=== PATIENT | female | born 1995 | race Caucasian/White ===

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

== ENCOUNTER 2017-04-28 12:29 | Inpatient (IN) | payer OTHER ==
[~2017-04-28] VITALS: Ht 160 cm; Wt 99.4 kg
[~2017-04-28 12:29] MED LIST changes: +INSU1INJ2 SQ; -ONDA4TAB10 SL
[2017-04-28] MEDS ORDERED: SODIUM CHLORIDE 0.9% 1000ML 2,000 ML IV STA (12:50)
[2017-04-28] MEDS ORDERED: ONDANSETRON INJ 2 MG/ML 2 ML VIAL IV STA (12:50)
[2017-04-28 13:32] LABS: BASO % 0.2 %; BASO ABS # 0.05 K/uL (0-0.2); COMPLETE YES; EOS % 0.5 %; HEMATOCRIT 41.3 % (37-47); IG% 0.4 %; LYMPH % 7.7 %; LYMPH ABS # 1.57 K/uL (1.2-3.4); MEAN CELL VOLUME 87.3 fL (80-100); MEAN CORPUSCULAR HEMOGLOBIN 29.4 pg (25-34); MEAN CORPUSCULAR HGB CONC 33.7 g/dl (32-36); NEUT % 87.2 %; PLATELET COUNT 404 K/uL (130-400); RED BLOOD COUNT 4.73 M/uL (4.2-5.4); WHITE BLOOD COUNT 20.41 K/uL (4.8-10.8)
[2017-04-28] MEDS ORDERED: PLMINSR5 INH (13:34)
[2017-04-28] MEDS ORDERED: GLC/500 PO (13:34)
[2017-04-28] MEDS ORDERED: XPNINS INH (13:34)
[2017-04-28] MEDS ORDERED: VNTHFA/IN INH (13:34)
[2017-04-28] MEDS ORDERED: MOME6000 NAE (13:34)
--- NOTE | 2017-04-28 13:40 | DIAGNOSTIC IMAGING REPORT ---
CHEST ONE VIEW PORTABLE CLINICAL HISTORY: cp dyspnea COMPARISON STUDY: 07/05/2014 FINDINGS: Several, exam due to patient body habitus. Prominent pulmonary vasculature to moderate degree. Diaphragms smooth. No focal infiltrative process. IMPRESSION: Prominent pulmonary vasculature. Otherwise negative study. The above report was generated using voice recognition software. It may contain grammatical, syntax or spelling errors. Electronically signed by: Vinicio Cao M.D. 04/28/2017 1:38 PM Dictated Date/Time: 04/28/2017 1:37 PM
[2017-04-28 13:45] LABS: URINE APPEARANCE CLOUDY (CLEAR); URINE BILIRUBIN NEG (NEG); URINE COLOR ORANGE; URINE EPITHELIAL CELL AUTO >30 /lpf (0-5); URINE NITRITE NEG (NEG); URINE SPECIFIC GRAVITY 1.033 (1.000-1.030); UROBILINOGEN NEG (NEG); ZZUR CULT IF INDIC CLEAN CATCH NO
[2017-04-28 13:47] LABS: MANUAL MICROSCOPIC REQUIRED? NO; REVIEW REQ? NO
[2017-04-28 13:51] LABS: ALT/SGPT 16 U/L (12-78); AST/SGOT 21 U/L (15-37); BLOOD UREA NITROGEN 13 mg/dl (7-18); BUN/CREATININE RATIO 15.8 (10-20); CALCIUM 9.4 mg/dl (8.5-10.1); CARBON DIOXIDE 19 mmol/L (21-32); CHLORIDE 100 mmol/L (98-107); CREATININE 0.82 mg/dl (0.60-1.20); GLUCOSE 317 mg/dl (70-99); SODIUM 135 mmol/L (136-145)
[2017-04-28 13:55] LABS: ALKALINE PHOSPHATASE 88 U/L (45-117)
[2017-04-28 14:02] LABS: BETA-HYDROXYBUTYRATE 30.31 mg/dL (0.2-2.81)
[2017-04-28] MEDS ORDERED: INSULIN IV INFUSION PROTOCOL STA ×2 (14:07→15:13)
[2017-04-28] MEDS ORDERED: SERT50TA PO (14:09)
[2017-04-28] MEDS ORDERED: MODERATE STRESS LEVEL ONE ×2 (14:15→15:15)
[2017-04-28] MEDS ORDERED: INSULIN REGULAR 250 UNITS in SODIUM CHLORIDE 0.9% 250ML 250 ML IV SCH (14:51)
[2017-04-28] MEDS ORDERED: INSULIN HUMAN REGULAR IV BOLUS 3 UNIT in SYRINGE 0 ML IV SCH (15:00)
[2017-04-28] MEDS ORDERED: GLUCOSE 10 TABS/TUBE PO PRN ×2 (15:00→16:45)
[2017-04-28] MEDS ORDERED: DEXTROSE 50% 50 ML SYR IV PRN ×2 (15:00→16:45)
[2017-04-28] MEDS ORDERED: GLUCOSE 40% GEL 15 GM TUBE PO PRN ×2 (15:00→16:45)
[2017-04-28] MEDS ORDERED: GLUCAGON FOR INJ 1 MG VIAL SQ PRN ×2 (15:00→16:45)
[2017-04-28] MEDS ORDERED: PHARMACY GLYCEMIC MGMT CONSULT PRN (15:15)
[2017-04-28] MEDS ORDERED: ONDANSETRON INJ 2 MG/ML 2 ML VIAL IV PRN (15:15)
[2017-04-28] MEDS ORDERED: PENDING D5 1/2NS+20mEq KCL IVF SCH (15:15)
[2017-04-28] MEDS ORDERED: PENDING NSS+20mEq KCL IVF SCH (15:15)
[2017-04-28] MEDS ORDERED: DKA GOAL RANGE 150-250 mg/dl 1 EA ONE (15:15)
[2017-04-28] MEDS ORDERED: ONDA4TAB46 PO (15:29)
[2017-04-28] MEDS ORDERED: SERT-234 PO (15:29)
[2017-04-28] MEDS ORDERED: INSULIN HUMAN REGULAR IV BOLUS 2.5 UNIT in SYRINGE 0 ML IV SCH (15:30)
[2017-04-28 15:53] LABS: PREG INTERNAL NEGATIVE QC NEG CLEAR BACKGROUND; PREG INTERNAL POSITIVE QC POS CONTROL LINE
[2017-04-28] MEDS ORDERED: RANITIDINE IV 50 MG in DEXTROSE 5% 100ML 100 ML IV SCH (16:00)
--- NOTE | 2017-04-28 16:12 | History and Physical ---
History & Physical Date & Time of Service: Apr 28, 2017 at 15:38 Chief Complaint: Diarreha, Nausea,Shortness Of Breath,Chest Pain Primary Care Physician: Carol Mckenzie D.O. History of Present Illness Source: patient, clinic records This is a 21yo F with a PMH of DM Type 1 (on insulin pump), asthma, anxiety, depression and GERD who presents with nausea, vomiting and chest pain that started this morning. Patient has had a decreased appetite for the past two days but otherwise has been in a normal state of health. This morning, she woke up this morning feeling lightheaded, thirsty and nauseous. Endorses 4 episodes of bilious vomit as well as 2 episodes of diarrhea. States that these are all signs of elevated blood sugar for her. Did not think her pump was working and was later told by her roommate that the pump was beeping during the night. Went to take her back-up insulin but realized she was out of her Novolog flex pen as well. Took "around 100 units" of her grandmother's Novolin, which she knows is not her normal type of insulin. States that she went into DKA numerous times as a kid but has been managing her pump better over the past few years. After taking her grandmother's insulin, patient felt well enough to go to work. Once moving around at work, started to develop a sharp, 9/10 pressure on her central chest with radiation to both arms. States that it was exacerbated with movement and better with rest. Is tender to the touch. Endorses dizziness,polydipsia, decreased appetite, nausea, and 5/10 chest tenderness. Denies any headache, visual changes, palpitations, SOB, abdominal pain, diarrhea/constipation or LE swelling. Patient was treated with antibiotics 2 weeks ago for laryngitis. Past Medical/Surgical History Medical Problems: (1) Anxiety Status: Chronic (2) Asthma, Unspecified Status: Chronic (3) Depression Status: Chronic (4) Diabetes mellitus type 1 Status: Chronic (5) GERD (gastroesophageal reflux disease) Status: Chronic Family History Diabetes mellitus FH: cancer FH: gallbladder disease Kidney disease Kidney stones Social History Smoking Status: Current Some Day Smoker (Smokes 2-5 cigarrettes every other day ) Alcohol Use: none Marital Status: single Housing status: lives with friends Occupational Status: employed Multi-Drug Resistant Organisms History of MDRO: No Allergies Coded Allergies: Amoxicillin (Verified Allergy, Intermediate, rash, 04/28/17) Clavulanic Acid (Verified Allergy, Intermediate, rash, 04/28/17) Loratadine (Unverified Allergy, Mild, 04/28/17) Red Dye (Verified Allergy, Unknown, `, 04/28/17) Penicillins (Unverified Adverse Reaction, Intermediate, RASH, 04/28/17) Home Medications Scheduled Albuterol Hfa (Ventolin Hfa), 2 PUFFS INH Q4H Insulin Aspart (novoLOG INSULIN PUMP ), 1 EA N/A UD Insulin Aspart (Novolog Penfill), 0 SQ UD Metformin Hcl (Glucophage), 500 MG PO BID Sertraline (Zoloft), 100 MG PO DAILY Scheduled PRN Ondansetron Hcl (Zofran), 4 MG PO Q8 PRN for Nausea Review of Systems Ten systems reviewed and negative except as noted in the HPI. Physical Exam Vital Signs Date Time Temp Pulse Resp B/P (MAP) Pulse Ox O2 Delivery O2 Flow Rate FiO2 04/28/17 14:09 98 18 103/58 99 04/28/17 12:35 36.8 96 20 141/86 97 Room Air General Appearance: no apparent distress, + obese Head: normocephalic, atraumatic Eyes: normal inspection, PERRL, EOMI, sclerae normal (conjunctiva normal ) ENT: normal ENT inspection, hearing grossly normal, pharynx normal (Dry mucous membranes ) Neck: supple, thyroid normal, trachea midline Respiratory/Chest: lungs clear, normal breath sounds, no respiratory distress, no accessory muscle use, + pertinent finding (TTP of chest wall ) Cardiovascular: regular rate, rhythm, no murmur, normal peripheral pulses Abdomen/GI: normal bowel sounds, non tender, soft, no organomegaly Extremities/Musculoskelatal: normal inspection, no calf tenderness, no pedal edema, non-tender Neurologic/Psych: no motor/sensory deficits, alert, normal mood/affect, oriented x 3 Skin: normal color, warm/dry, no rash Diagnostics Laboratory Results Results Past 24 Hours Test 04/28/17 12:44 04/28/17 12:50 04/28/17 13:14 04/28/17 15:03 Range/Units Bedside Glucose 267 70-90 mg/dl Urine Test NEG NEG White Blood Count 20.41 4.8-10.8 K/uL Red Blood Count 4.73 4.2-5.4 M/uL Hemoglobin 13.9 12.0-16.0 g/dL Hematocrit 41.3 37-47 % Mean Corpuscular Volume 87.3 80-100 fL Mean Corpuscular Hemoglobin 29.4 25-34 pg Mean Corpuscular Hemoglobin Concent 33.7 32-36 g/dl Platelet Count 404 130-400 K/uL Mean Platelet Volume 10.0 7.4-10.4 fL Neutrophils (%) (Auto) 87.2 % Lymphocytes (%) (Auto) 7.7 % Monocytes (%) (Auto) 4.0 % Eosinophils (%) (Auto) 0.5 % Basophils (%) (Auto) 0.2 % Neutrophils # (Auto) 17.80 1.4-6.5 K/uL Lymphocytes # (Auto) 1.57 1.2-3.4 K/uL Monocytes # (Auto) 0.81 0.11-0.59 K/uL Eosinophils # (Auto) 0.10 0-0.5 K/uL Basophils # (Auto) 0.05 0-0.2 K/uL RDW Standard Deviation 44.3 36.4-46.3 fL RDW Coefficient of Variation 13.8 11.5-14.5 % Immature Granulocyte % (Auto) 0.4 % Immature Granulocyte # (Auto) 0.08 0.00-0.02 K/uL Urine Color ORANGE Urine Appearance CLOUDY CLEAR Urine pH 5.0 4.5-7.5 Urine Specific [place] 1.033 1.000-1.030 Urine Protein TRACE NEG Urine Glucose (UA) 3+ NEG Urine Ketones 4+ NEG Urine Occult Blood 3+ NEG Urine Nitrite NEG NEG Urine Bilirubin NEG NEG Urine Urobilinogen NEG NEG Urine Leukocyte Esterase NEG NEG Urine WBC (Auto) 1-5 0-5 /hpf Urine RBC (Auto) >30 0-4 /hpf Urine Hyaline Casts (Auto) 1-5 0-5 /lpf Urine Epithelial Cells (Auto) >30 0-5 /lpf Urine Bacteria (Auto) NEG NEG Sodium Level 135 136-145 mmol/L Potassium Level 4.0 3.5-5.1 mmol/L Chloride Level 100 98-107 mmol/L Carbon Dioxide Level 19 21-32 mmol/L Anion Gap 15.0 3-11 mmol/L Blood Urea Nitrogen 13 7-18 mg/dl Creatinine 0.82 0.60-1.20 mg/dl Est Creatinine Clear Calc Drug Dose 125.1 ml/min Estimated GFR () 120.2 Estimated GFR (Non- 103.7 BUN/Creatinine Ratio 15.8 10-20 Random Glucose 317 70-99 mg/dl Calcium Level 9.4 8.5-10.1 mg/dl Total Bilirubin 0.8 0.2-1 mg/dl Direct Bilirubin 0.2 0-0.2 mg/dl Aspartate Amino Transf (AST/SGOT) 21 15-37 U/L Alanine Aminotransferase (ALT/SGPT) 16 12-78 U/L Alkaline Phosphatase 88 45-117 U/L Troponin I < 0.015 0-0.045 ng/ml Total Protein 7.7 6.4-8.2 gm/dl Albumin 3.8 3.4-5.0 gm/dl Lipase 39 73-393 U/L Beta-Hydroxybutyric Acid 30.31 0.2-2.81 mg/dL Test 04/28/17 15:13 Range/Units Diagnostic Radiology CXR: IMPRESSION: Prominent pulmonary vasculature. Otherwise negative study. EKG Sinus tachycardia Rightward axis Borderline ECG When compared with ECG of 05-JUL-2014 18:38, No significant change was found Confirmed by ROSEMARIE PAZ Also reviewed by me No change from prior EKG Impression Assessment and Plan This is a 21yo F with a PMH of DM Type 1 (on insulin pump), asthma, anxiety, depression and GERD who presents with nausea, vomiting and chest pain that started this morning. Mild DKA: -2/2 malfunctioning pump in an uncontrolled Type 1 diabetic -Could also be an infectious etiology with a leukocytosis of 20 -Resolving viral URI infection from 2 weeks ago -UA is clean, CXR without evidence of PNA, no current URI symptoms -BSG of 317 on arrival -Anion gap of 15, bicarb of 19 -Elevated B hydroxybutyric acid of 30.31, 4+ ketones in urine -Initiated insulin infusion per DKA protocol -ABG pending -Continue IVF -Monitor BMP Q4H, VBG Q4H -Keep NPO until anion gap closes -Diabetic education consult Chest pain: -VS stable -Likely musculoskeletal etiology, chest wall tender to palpation on exam -Initial troponin negative, CXR without acute abnormality -EKG-with sinus tachycardia; no change from previous -Trend serial cardiac enzymes for completeness -Check echo Diarrhea: -Endorses a few episodes today -Likely 2/2 DKA, but did complete abx 2 weeks ago -Stool studies, c diff pending Asthma: -Remote history of asthma -Previously triggered by URI -Denies any wheezing/SOB -Lung exam is clear -Continue home inhaler Anxiety/depression: -H/o admission to the [facility] in November for suicidal ideation -Currently stable, no SI/HI -Continue sertraline 100mg daily GERD: -Not on any home meds -Initiated IV Zantac Q8H DVT Ppx: Jason stokeslibby Code status: FULL PCP: Abbe Mckenzie Dispo: Plan to return home once medically stable Patient seen in collaboration with Dr. Butler. Please see addendum. Attending Note: Patient is a 21 Yr old Female with PMH of Type I DM presents with history of poor appetite, nausea, dizziness, vomiting, diarrhea, chest and epigastric pain. Patient noticed that Insulin pump was not working this morning. Also admits to not eating well since last 2 days. Her labs are consistent with DKA. Reports being just recovered from laryngitis 2 weeks ago. Also reports atypical chest pain which is likely musculoskeletal in origin as it is reproducible. Physical Exam: Vitals signs as noted above General Appearance:Obese, no apparent distress Head: normocephalic, Atraumatic Eyes: normal inspection, EOMI, PERRL Neck: supple, Trachea midline Respiratory/Chest: Normal breath sounds, CTA, No accessory muscle use Cardiovascular: S1, S2, No murmur, chest tender to palpate Abdomen/GI:Soft, epigastric tender, Bowel sounds present Extremities/Musculoskelatal:normal inspection, no edema Neurologic/Psych:AAOX3, grossly no focal neurological deficits Skin:normal color,warm Assessment and Plan: DKA: Likely secondary to pump malfunction Also starvation ketoacidosis could also be contributing Started on DKA protocol: Insulin, IV fluids Monitor electrolytes Chest Pain: Likely musculoskeletal in origin H/O Asthma but no wheezing on exam Abd Pain: Likely secondary to gastritis from DKA Start PPI Leukocytosis: No obvious source of infection Procalcitonin, lactate: normal I personally reviewed the record. Patient is interviewed and examined at bedside. Patient's care is coordinated with Akilah Garcia PA-C. Please refer to the documentation above for details of patient's presentation and for discussion of other issues. Level of Care Telemetry Resuscitation Status FULL RESUSCITATION VTE Prophylaxis VTE Risk Assessment Done? Y/N: Yes Risk Level: Low Given or contraindicated: T.E.D. Stockings
[2017-04-28 16:30] VITALS: BP 118/71; PULSE 94; TEMP 36.8; O2SAT 98
[2017-04-28 16:30] LABS: ARTERIAL BLD GAS O2 SATURATION 97.4 % (90-95); ARTERIAL BLOOD GAS BASE EXCESS -7.1 mEq/L (-9-1.8); ARTERIAL BLOOD GAS HCO3 18 mmol/L (19-24); ARTERIAL BLOOD GAS PO2 99 mm/Hg (80-95); ARTERIAL BLOOD GAS pH 7.34 (7.35-7.45)
[2017-04-28 16:33] LABS: CREATININE 0.73 mg/dl (0.60-1.20)
[2017-04-28 16:34] LABS: BUN/CREATININE RATIO 18.7 (10-20); CALCIUM 8.5 mg/dl (8.5-10.1); MAGNESIUM 1.6 mg/dl (1.8-2.4); PHOSPHORUS 2.7 mg/dl (2.5-4.9)
[2017-04-28 16:36] VITALS: BP 130/59; PULSE 90; TEMP 37.1; O2SAT 98; BMI 39.4
[2017-04-28 16:39] LABS: ALLEN TEST POS (POS); O2 ADMINISTRATION RA
[2017-04-28] MEDS ORDERED: IV FLUIDS COMPLETED PRN (16:45)
[2017-04-28] MEDS ORDERED: SODIUM CHLORIDE 0.9% 1000ML 1,000 ML IV ONE (16:46)
[2017-04-28] MEDS ORDERED: SODIUM CHLORIDE 0.9% 1000ML 1,000 ML IV SCH (16:46)
[2017-04-28 17:08] LABS: ESTIMATED AVERAGE GLUCOSE 203 mg/dl; HA1C FLAG Normal (Normal)
[2017-04-28] MEDS ORDERED: INSULIN ASPART 100 UNITS/ML 3 ML PEN SC SCH ×2 (17:15→19:00)
[2017-04-28] MEDS ORDERED: NURSING VERBAL MED ORDER ONE (17:15)
[2017-04-28] MEDS ORDERED: INSPMPNVLG (17:50)
[2017-04-28] MEDS ORDERED: PROM25TA9 PO (17:50)
--- NOTE | 2017-04-28 18:00 | EMERGENCY ROOM VISIT NOTE ---
History Report prepared by José Miguel: Bob Esposito Under the Supervision of: Dr. Angelo Sarabia D.O. First contact with patient: 12:42 Chief Complaint: CHEST PAIN Stated Complaint: DIARREHA, NAUSEA,SHORTNESS OF BREATH,CHEST PAIN Nursing Triage Summary: "I'm a diabetic, this morning I woke up and heard my insulin pump beeping, I refilled it and left for work, I didn't have time to check my blood sugar. I developed chest pain last night, this morning it is much worse, I feel like someone is holding their hand on my heart and pushing down." Pain 04/08. Pt also verbalizes N/V/D, dizziness, and shortness of breath. History of Present Illness The patient is a 21 year old female who presents to the Emergency Room with complaints of sharp chest pain that began 2 hours ago. She has a history of type 1 diabetes. Her symptoms presented this morning when she woke up. She began having this chest pain with radiation down her bilateral arms. She also became short of breath with her pain. Along with this, she became nauseated and had 4 episodes of vomiting with 2 episodes of diarrhea. This has never happened to her before. She denies any sore throat or abdominal pain. She has been in DKA before, but does not remember what it feels like. She has had her insulin pump in place but has not checked her sugar recently. Source of History: patient Onset: this morning Position: chest Symptom Intensity: moderate Quality: sharp Timing: constant Associated Symptoms: + SOB, + nausea, + vomiting, + diarrhea, No sorethroat , No abdominal pain Review of Systems See HPI for pertinent positives & negatives. A total of 10 systems reviewed and were otherwise negative. Past Medical & Surgical Medical Problems: (1) Anxiety (2) Asthma, Unspecified (3) Depression (4) Diabetes mellitus type 1 (5) GERD (gastroesophageal reflux disease) Family History Diabetes mellitus FH: cancer FH: gallbladder disease Kidney disease Kidney stones Social History Smoking Status: Current Some Day Smoker Marital Status: single Housing Status: lives with family Occupation Status: student Current/Historical Medications Scheduled Albuterol Hfa (Ventolin Hfa), 2 PUFFS INH Q4H Insulin Aspart (novoLOG INSULIN PUMP ), 1 EA N/A UD Insulin Aspart (Novolog Penfill), 0 SQ UD Metformin Hcl (Glucophage), 500 MG PO BID Sertraline (Zoloft), 100 MG PO DAILY Scheduled PRN Ondansetron Hcl (Zofran), 4 MG PO Q8 PRN for Nausea Allergies Coded Allergies: Amoxicillin (Verified Allergy, Intermediate, rash, 04/28/17) Clavulanic Acid (Verified Allergy, Intermediate, rash, 04/28/17) Loratadine (Unverified Allergy, Mild, 04/28/17) Red Dye (Verified Allergy, Unknown, `, 04/28/17) Penicillins (Unverified Adverse Reaction, Intermediate, RASH, 04/28/17) Physical Exam Vital Signs Date Time Temp Pulse Resp B/P (MAP) Pulse Ox O2 Delivery O2 Flow Rate FiO2 04/28/17 14:09 98 18 103/58 99 04/28/17 12:35 36.8 96 20 141/86 97 Room Air Physical Exam GENERAL: Sitting up in bed, alert, ill appearing, well nourished, minimal distress, non-toxic, vomiting EYE EXAM: normal conjunctiva. OROPHARYNX: no exudate, no erythema, lips, buccal mucosa, and tongue normal and mucous membranes are moist NECK: supple, no nuchal rigidity, no adenopathy, non-tender LUNGS: Clear to auscultation. Normal chest wall mechanics HEART: no murmurs, S1 normal and S2 normal ABDOMEN: abdomen soft, non-tender, normo-active bowel sounds, no masses, no rebound or guarding. BACK: Back is symmetrical on inspection and there is no deformity, no midline tenderness, no CVA tenderness. SKIN: no rashes and no bruising UPPER EXTREMITIES: upper extremities are grossly normal. LOWER EXTREMITIES: No pitting edema. NEURO EXAM: Normal sensorium, cranial nerves II-XII grossly intact, normal speech, no gross weakness of arms, no gross weakness of legs. Medical Decision & Procedures ER Provider Diagnostic Interpretation: Radiology results as stated below per my review and the radiologist's interpretation: CHEST ONE VIEW PORTABLE CLINICAL HISTORY: cp dyspnea COMPARISON STUDY: 07/05/2014 FINDINGS: Several, exam due to patient body habitus. Prominent pulmonary vasculature to moderate degree. Diaphragms smooth. No focal infiltrative process. IMPRESSION: Prominent pulmonary vasculature. Otherwise negative study. The above report was generated using voice recognition software. It may contain grammatical, syntax or spelling errors. Electronically signed by: Vinicio Cao M.D. 04/28/2017 1:38 PM Dictated Date/Time: 04/28/2017 1:37 PM Laboratory Results 04/28/17 13:14 Red Blood Count 4.73, Mean Corpuscular Volume 87.3, Mean Corpuscular Hemoglobin 29.4, Mean Corpuscular Hemoglobin Concent 33.7, Mean Platelet Volume 10.0, Neutrophils (%) (Auto) 87.2, Lymphocytes (%) (Auto) 7.7, Monocytes (%) (Auto) 4.0, Eosinophils (%) (Auto) 0.5, Basophils (%) (Auto) 0.2, Neutrophils # (Auto) 17.80, Lymphocytes # (Auto) 1.57, Monocytes # (Auto) 0.81, Eosinophils # (Auto) 0.10, Basophils # (Auto) 0.05 Test 04/28/17 12:50 04/28/17 13:14 Urine Test NEG (NEG) White Blood Count 20.41 K/uL (4.8-10.8) Red Blood Count 4.73 M/uL (4.2-5.4) Hemoglobin 13.9 g/dL (12.0-16.0) Hematocrit 41.3 % (37-47) Mean Corpuscular Volume 87.3 fL (80-100) Mean Corpuscular Hemoglobin 29.4 pg (25-34) Mean Corpuscular Hemoglobin Concent 33.7 g/dl (32-36) Platelet Count 404 K/uL (130-400) Mean Platelet Volume 10.0 fL (7.4-10.4) Neutrophils (%) (Auto) 87.2 % Lymphocytes (%) (Auto) 7.7 % Monocytes (%) (Auto) 4.0 % Eosinophils (%) (Auto) 0.5 % Basophils (%) (Auto) 0.2 % Neutrophils # (Auto) 17.80 K/uL (1.4-6.5) Lymphocytes # (Auto) 1.57 K/uL (1.2-3.4) Monocytes # (Auto) 0.81 K/uL (0.11-0.59) Eosinophils # (Auto) 0.10 K/uL (0-0.5) Basophils # (Auto) 0.05 K/uL (0-0.2) RDW Standard Deviation 44.3 fL (36.4-46.3) RDW Coefficient of Variation 13.8 % (11.5-14.5) Immature Granulocyte % (Auto) 0.4 % Immature Granulocyte # (Auto) 0.08 K/uL (0.00-0.02) Urine Color ORANGE Urine Appearance CLOUDY (CLEAR) Urine pH 5.0 (4.5-7.5) Urine Specific [place] 1.033 (1.000-1.030) Urine Protein TRACE (NEG) Urine Glucose (UA) 3+ (NEG) Urine Ketones 4+ (NEG) Urine Occult Blood 3+ (NEG) Urine Nitrite NEG (NEG) Urine Bilirubin NEG (NEG) Urine Urobilinogen NEG (NEG) Urine Leukocyte Esterase NEG (NEG) Urine WBC (Auto) 1-5 /hpf (0-5) Urine RBC (Auto) >30 /hpf (0-4) Urine Hyaline Casts (Auto) 1-5 /lpf (0-5) Urine Epithelial Cells (Auto) >30 /lpf (0-5) Urine Bacteria (Auto) NEG (NEG) Estimated Average Glucose 203 mg/dl Hemoglobin A1c 8.7 % (4.5-5.6) Total Bilirubin 0.8 mg/dl (0.2-1) Direct Bilirubin 0.2 mg/dl (0-0.2) Aspartate Amino Transf (AST/SGOT) 21 U/L (15-37) Alanine Aminotransferase (ALT/SGPT) 16 U/L (12-78) Alkaline Phosphatase 88 U/L (45-117) Troponin I < 0.015 ng/ml (0-0.045) Total Protein 7.7 gm/dl (6.4-8.2) Albumin 3.8 gm/dl (3.4-5.0) Lipase 39 U/L (73-393) Beta-Hydroxybutyric Acid 30.31 mg/dL (0.2-2.81) Procalcitonin 0.05 ng/ml (0-0.5) Human Chorionic Gonadotropin, Qual NEG (NEG) Laboratory results per my review. Medications Administered Medications (Trade) Dose Ordered Sig/Mary Anne Route Start Time Stop Time Status Last Admin Dose Admin Sodium Chloride 2,000 ml @ 999 mls/hr Q2H1M STAT IV 04/28/17 12:50 04/28/17 14:50 DC 04/28/17 13:14 999 MLS/HR Ondansetron HCl (Zofran Inj) 4 mg NOW STAT IV 04/28/17 12:50 04/28/17 12:51 DC 04/28/17 13:12 4 MG Insulin Human Regular 250 units/ Sodium Chloride 252.5 ml @ 2.5 mls/hr DAILY@1130 IV 04/28/17 14:51 04/29/17 11:29 04/28/17 15:29 2.5 MLS/HR Insulin Human Regular 2.5 unit/ Syringe 2.5 ml @ 1 mls/min 1530 IV 04/28/17 15:30 04/28/17 16:30 DC 04/28/17 15:31 1 MLS/MIN ECG Indication: chest pain Rate (beats per minute): 101 Rhythm: sinus tachycardia Findings: no ectopy, other (Normal axis) ED Course ED COURSE: Vital signs were reviewed and showed normal vitals. The patients medical record was reviewed The above diagnostic studies were performed and reviewed. ED treatments and interventions as stated above. 1242: The patient was evaluated in room B7. A complete history and physical examination was performed. 1250: Ordered Zofran Inj 4 mg IV, Sodium Chloride 2000 ml @ 999 mls/hr IV 1407: Ordered Insulin Human Regular 1 ea 1424: Upon reevaluation, the patient is resting. I discussed my findings with the patient and she understands and agrees with the treatment plan. Based on the patients age, coexisting illnesses, exam and lab findings the decision to treat as an inpatient was made. The patient remained stable while under my care. The patient will be evaluated by Akilah Garcia PA-C - [facility] Hospitalist, for further management. Medical Decision Differential diagnoses includes but is not limited to acute coronary syndrome, myocardial infarction, pericarditis, pulmonary embolus, aortic dissection, pneumonia, pneumothorax, musculoskeletal, shingles, esophageal. Patient is a 21 year old female who presents to ER with nausea vomiting and diarrhea. She is a type I diabetic. She has an insulin pump. She has not checked her glucose recently. She has been unable to keep anything down. Blood sugar upon arrival was 300s. Plus four ketones. CO2 15. CO2 19. Based on this patient was given 2 L normal saline and insulin drip and bolus was ordered. Patient was given Zofran and was feeling slightly better. Blood sugar trend down to 250. Based on her symptoms patient was admitted for DKA as she was unable to tolerate fluids with an anion gap acidosis. Patient was monitored closely with the elevated blood sugars on the insulin drip with her nausea vomiting. Medication Reconcilliation Current Medication List: was personally reviewed by me Blood Pressure Screening Patient's blood pressure: Normal blood pressure Blood pressure disposition: Did not require urgent referral Consults Time Called: 1420 Consulting Physician: Akilah Garcia PA-C [facility] Hospitalist Returned Call: [phone] I reviewed the patient's case with her. She will evaluate the patient for further management. Impression Primary Impression: DKA (diabetic ketoacidoses) Critical Care I have personally spent 35 minutes of critical care time in the direct management of this patient. This includes bedside care, interpretation of diagnostic studies, and testing, discussion with consultants, patient, and family members, and other required patient management activities. This 35 minutes is in excess of all separately billable procedures. Scribe Attestation The scribe's documentation has been prepared under my direction and personally reviewed by me in its entirety. I confirm that the note above accurately reflects all work, treatment, procedures, and medical decision making performed by me. Departure Information Dispostion Being Evaluated By Hospitalist Referrals Carol Mckenzie D.O. (PCP) Patient Instructions My [facility] Problem Qualifiers Primary Impression: DKA (diabetic ketoacidoses) Diabetes mellitus type: type 1 Diabetes mellitus complication detail: without coma Qualified Codes: E10.10 - Type 1 diabetes mellitus with ketoacidosis without coma
[2017-04-28] MEDS: D5W AND 1/2NSS + 20MEQ KCL 1000 ML IV SCH (18:15)
[2017-04-28] MEDS: INSULIN ASPART 100 UNITS/ML 3 ML PEN SC SCH ×2 (18:16→21:00)
[2017-04-28] MEDS ORDERED: MAGNESIUM SULFATE 1GM / D5W 1 GM in PREMIXED IN D5W 100 ML IV SCH (18:30)
[2017-04-28] MEDS: MAGNESIUM SULFATE 1GM / D5W 1 GM in PREMIXED IN D5W 100 ML IV SCH ×2 (18:48→19:48)
[2017-04-28 19:30] VITALS: BP 118/64; PULSE 96; TEMP 37.2; O2SAT 98
[2017-04-28] MEDS: INSULIN REGULAR 250 UNITS in SODIUM CHLORIDE 0.9% 250ML 250 ML IV SCH (19:58)
[2017-04-28 20:14] LABS: BUN/CREATININE RATIO 16.6 (10-20); CALCIUM 8.3 mg/dl (8.5-10.1); CREATININE 0.67 mg/dl (0.60-1.20); PHOSPHORUS 3.2 mg/dl (2.5-4.9); POTASSIUM 3.9 mmol/L (3.5-5.1)
[2017-04-28 20:19] LABS: CKMB/CK RATIO 0.5 (0-3.0)
[2017-04-28] MEDS: ALBUTEROL HFA 8 GM INHALER INH SCH (20:32)
[2017-04-28] MEDS: FAMOTIDINE IV INJ 20 MG in SYRINGE 3 ML IV SCH (21:37)
[2017-04-28 23:46] VITALS: BP 122/60; PULSE 92; TEMP 37; O2SAT 99
[2017-04-29] VITALS (7 sets, daily range): BP systolic 119–164; BP diastolic 55–102; PULSE 83–105; TEMP 36.7–37; O2SAT 95–99; BMI 39.5
[2017-04-29 00:15] LABS: BUN/CREATININE RATIO 14.9 (10-20); CALCIUM 8.3 mg/dl (8.5-10.1); CREATININE 0.69 mg/dl (0.60-1.20); MAGNESIUM 1.9 mg/dl (1.8-2.4); PHOSPHORUS 3.6 mg/dl (2.5-4.9); POTASSIUM 4.5 mmol/L (3.5-5.1)
[2017-04-29 00:33] LABS: BETA-HYDROXYBUTYRATE 32.47 mg/dL (0.2-2.81)
[2017-04-29] MEDS: ALBUTEROL HFA 8 GM INHALER INH SCH ×6 (00:35→20:48)
[2017-04-29 01:37] LABS: CKMB/CK RATIO 0.5 (0-3.0)
[2017-04-29] MEDS: D5W AND 1/2NSS + 20MEQ KCL 1000 ML IV SCH (03:17)
[2017-04-29 04:03] LABS: BASO % 0.2 %; BASO ABS # 0.04 K/uL (0-0.2); COMPLETE YES; EOS % 0.2 %; HEMATOCRIT 37.4 % (37-47); IG% 0.6 %; LYMPH % 10.4 %; LYMPH ABS # 1.83 K/uL (1.2-3.4); MEAN CELL VOLUME 87.4 fL (80-100); MEAN CORPUSCULAR HEMOGLOBIN 28.3 pg (25-34); MEAN CORPUSCULAR HGB CONC 32.4 g/dl (32-36); MEAN PLATELET VOLUME 9.7 fL (7.4-10.4); MONO % 5.3 %; NEUT % 83.3 %; PLATELET COUNT 338 K/uL (130-400); RED BLOOD COUNT 4.28 M/uL (4.2-5.4); WHITE BLOOD COUNT 17.67 K/uL (4.8-10.8)
[2017-04-29 04:29] LABS: BUN/CREATININE RATIO 12.1 (10-20); CALCIUM 8.1 mg/dl (8.5-10.1); CREATININE 0.8 mg/dl (0.60-1.20); MAGNESIUM 1.9 mg/dl (1.8-2.4); PHOSPHORUS 2.8 mg/dl (2.5-4.9); POTASSIUM 4.7 mmol/L (3.5-5.1)
[2017-04-29 05:03] LABS: BETA-HYDROXYBUTYRATE 39.6 mg/dL (0.2-2.81)
[2017-04-29] MEDS ORDERED: D5W AND NSS 1,000 ML IV PRN (05:15)
[2017-04-29] MEDS: SODIUM CHLORIDE 0.9% 1000ML 1,000 ML IV SCH ×2 (05:29→10:44)
[2017-04-29] MEDS ORDERED: PERFLUTREN LIPID MICROSPHERE (DEFINITY) IV ONE (07:08)
[2017-04-29] MEDS: FAMOTIDINE IV INJ 20 MG in SYRINGE 3 ML IV SCH (07:52)
[2017-04-29] MEDS: INSULIN ASPART 100 UNITS/ML 3 ML PEN SC SCH ×2 (07:52→12:22)
[2017-04-29] MEDS: SERTRALINE HCL 100 MG TAB PO SCH (07:54)
[2017-04-29 08:44] LABS: BUN/CREATININE RATIO 12.2 (10-20); CALCIUM 8.3 mg/dl (8.5-10.1); CREATININE 0.69 mg/dl (0.60-1.20); MAGNESIUM 1.9 mg/dl (1.8-2.4); PHOSPHORUS 2.5 mg/dl (2.5-4.9); POTASSIUM 4.2 mmol/L (3.5-5.1)
[2017-04-29] MEDS ORDERED: ALUMINUM/MAGNESIUM SUSP 30 ML UDC ONE (08:52)
[2017-04-29] MEDS ORDERED: ALUMINUM/MAGNESIUM SUSP 30 ML UDC PO PRN (09:00)
[2017-04-29] MEDS: INSULIN REGULAR 250 UNITS in SODIUM CHLORIDE 0.9% 250ML 250 ML IV SCH (09:30)
[2017-04-29] MEDS ORDERED: CALCIUM CARBONATE 500 MG CHEWABLE PO PRN (09:30)
--- NOTE | 2017-04-29 09:48 | Progress Note ---
Medicine Progress Note Date & Time of Visit: Apr 29, 2017 at 09:34. Subjective 21 yo F p/w n/v/d and chest pressure. Chest pressure began yesterday and is described as burning and in the middle of her chest without radiation or associated symptoms of SOB, lightheadedness. CP began after vomiting began. No family h/o CAD. -presenting symptoms have improved. -recently tried Maalox for chest pressure. Encouraged her to sit up. -no SOB but requesting albuterol -gap closed, continues on insulin drip, gluc now <250. Objective Last 8 Hrs Date Time Temp Pulse Resp B/P (MAP) Pulse Ox O2 Delivery O2 Flow Rate FiO2 04/29/17 08:38 91 16 140/94 (109) 95 Room Air 04/29/17 07:56 36.9 85 16 119/55 (76) 99 04/29/17 04:25 37.0 91 22 122/57 (78) 98 Room Air 04/29/17 04:00 Room Air Physical Exam: GEN: Obese, in no acute distress, alert and appropriate HEENT: NC/AT, normal sclerae, MMM CARDIO: reg rate, S1/2 heard without m/g/r LUNGS: CTA bilaterally, no crackles, rales or wheezes, good diaphragmatic excursion ABD: soft, generalized tenderness, non-distended, no rebound or guarding, BS. Insulin port in LUQ-intact, no surrounding erythema. EXTREMITY: RP and DP palpable 2+ bilat, no LE swelling or edema, extremities are warm and well-perfused NEURO: CN 2-12 grossly intact MUSC: 5/5 strength throughout, no focal deficits. Moves around the bed with ease. SKIN: warm and dry Laboratory Results: 04/29/17 03:51 Red Blood Count 4.28, Mean Corpuscular Volume 87.4, Mean Corpuscular Hemoglobin 28.3, Mean Corpuscular Hemoglobin Concent 32.4, Mean Platelet Volume 9.7, Neutrophils (%) (Auto) 83.3, Lymphocytes (%) (Auto) 10.4, Monocytes (%) (Auto) 5.3, Eosinophils (%) (Auto) 0.2, Basophils (%) (Auto) 0.2, Neutrophils # (Auto) 14.72, Lymphocytes # (Auto) 1.83, Monocytes # (Auto) 0.94, Eosinophils # (Auto) 0.04, Basophils # (Auto) 0.04 04/29/17 07:59 Test 04/28/17 12:50 04/28/17 13:14 04/28/17 15:48 04/28/17 15:54 Urine Test NEG (NEG) Urine Color ORANGE Urine Appearance CLOUDY (CLEAR) Urine pH 5.0 (4.5-7.5) Urine Specific [place] 1.033 (1.000-1.030) Urine Protein TRACE (NEG) Urine Glucose (UA) 3+ (NEG) Urine Ketones 4+ (NEG) Urine Occult Blood 3+ (NEG) Urine Nitrite NEG (NEG) Urine Bilirubin NEG (NEG) Urine Urobilinogen NEG (NEG) Urine Leukocyte Esterase NEG (NEG) Urine WBC (Auto) 1-5 /hpf (0-5) Urine RBC (Auto) >30 /hpf (0-4) Urine Hyaline Casts (Auto) 1-5 /lpf (0-5) Urine Epithelial Cells (Auto) >30 /lpf (0-5) Urine Bacteria (Auto) NEG (NEG) Estimated Average Glucose 203 mg/dl Hemoglobin A1c 8.7 % (4.5-5.6) Total Bilirubin 0.8 mg/dl (0.2-1) Direct Bilirubin 0.2 mg/dl (0-0.2) Aspartate Amino Transf (AST/SGOT) 21 U/L (15-37) Alanine Aminotransferase (ALT/SGPT) 16 U/L (12-78) Alkaline Phosphatase 88 U/L (45-117) Total Protein 7.7 gm/dl (6.4-8.2) Albumin 3.8 gm/dl (3.4-5.0) Lipase 39 U/L (73-393) Procalcitonin 0.05 ng/ml (0-0.5) Human Chorionic Gonadotropin, Qual NEG (NEG) Arterial Blood pH 7.34 (7.35-7.45) Arterial Blood Partial Pressure CO2 33 mmHg (35-46) Arterial Blood Partial Pressure O2 99 mm/Hg (80-95) Arterial Blood HCO3 18 mmol/L (19-24) Arterial Blood Oxygen Saturation 97.4 % (90-95) Arterial Blood Base Excess -7.1 mEq/L (-9-1.8) Arterial Blood Gas Delivery RA Jack Test POS (POS) Lactic Acid Level 1.3 mmol/L (0.4-2.0) Test 04/29/17 01:07 04/29/17 03:51 04/29/17 07:59 04/29/17 09:08 Total Creatine Kinase 276 U/L (26-192) Creatine Kinase MB 1.3 ng/ml (0.5-3.6) Creatine Kinase MB Ratio 0.5 (0-3.0) Troponin I < 0.015 ng/ml (0-0.045) White Blood Count 17.67 K/uL (4.8-10.8) Red Blood Count 4.28 M/uL (4.2-5.4) Hemoglobin 12.1 g/dL (12.0-16.0) Hematocrit 37.4 % (37-47) Mean Corpuscular Volume 87.4 fL (80-100) Mean Corpuscular Hemoglobin 28.3 pg (25-34) Mean Corpuscular Hemoglobin Concent 32.4 g/dl (32-36) Platelet Count 338 K/uL (130-400) Mean Platelet Volume 9.7 fL (7.4-10.4) Neutrophils (%) (Auto) 83.3 % Lymphocytes (%) (Auto) 10.4 % Monocytes (%) (Auto) 5.3 % Eosinophils (%) (Auto) 0.2 % Basophils (%) (Auto) 0.2 % Neutrophils # (Auto) 14.72 K/uL (1.4-6.5) Lymphocytes # (Auto) 1.83 K/uL (1.2-3.4) Monocytes # (Auto) 0.94 K/uL (0.11-0.59) Eosinophils # (Auto) 0.04 K/uL (0-0.5) Basophils # (Auto) 0.04 K/uL (0-0.2) RDW Standard Deviation 44.8 fL (36.4-46.3) RDW Coefficient of Variation 14.0 % (11.5-14.5) Immature Granulocyte % (Auto) 0.6 % Immature Granulocyte # (Auto) 0.10 K/uL (0.00-0.02) Beta-Hydroxybutyric Acid 39.60 mg/dL (0.2-2.81) Venous Blood pH 7.33 (7.36-7.41) Anion Gap 9.0 mmol/L (3-11) Est Creatinine Clear Calc Drug Dose 148.9 ml/min Estimated GFR () 146.3 Estimated GFR (Non- 126.2 BUN/Creatinine Ratio 12.2 (10-20) Calcium Level 8.3 mg/dl (8.5-10.1) Phosphorus Level 2.5 mg/dl (2.5-4.9) Magnesium Level 1.9 mg/dl (1.8-2.4) Bedside Glucose 167 mg/dl (70-90) Last 24 Hours Test 04/28/17 12:44 04/28/17 12:50 04/28/17 13:14 04/28/17 14:16 Bedside Glucose 267 mg/dl 250 mg/dl Urine Test NEG White Blood Count 20.41 K/uL Red Blood Count 4.73 M/uL Hemoglobin 13.9 g/dL Hematocrit 41.3 % Mean Corpuscular Volume 87.3 fL Mean Corpuscular Hemoglobin 29.4 pg Mean Corpuscular Hemoglobin Concent 33.7 g/dl Platelet Count 404 K/uL Mean Platelet Volume 10.0 fL Neutrophils (%) (Auto) 87.2 % Lymphocytes (%) (Auto) 7.7 % Monocytes (%) (Auto) 4.0 % Eosinophils (%) (Auto) 0.5 % Basophils (%) (Auto) 0.2 % Neutrophils # (Auto) 17.80 K/uL Lymphocytes # (Auto) 1.57 K/uL Monocytes # (Auto) 0.81 K/uL Eosinophils # (Auto) 0.10 K/uL Basophils # (Auto) 0.05 K/uL RDW Standard Deviation 44.3 fL RDW Coefficient of Variation 13.8 % Immature Granulocyte % (Auto) 0.4 % Immature Granulocyte # (Auto) 0.08 K/uL Urine Color ORANGE Urine Appearance CLOUDY Urine pH 5.0 Urine Specific [place] 1.033 Urine Protein TRACE Urine Glucose (UA) 3+ Urine Ketones 4+ Urine Occult Blood 3+ Urine Nitrite NEG Urine Bilirubin NEG Urine Urobilinogen NEG Urine Leukocyte Esterase NEG Urine WBC (Auto) 1-5 /hpf Urine RBC (Auto) >30 /hpf Urine Hyaline Casts (Auto) 1-5 /lpf Urine Epithelial Cells (Auto) >30 /lpf Urine Bacteria (Auto) NEG Sodium Level 135 mmol/L Potassium Level 4.0 mmol/L Chloride Level 100 mmol/L Carbon Dioxide Level 19 mmol/L Anion Gap 15.0 mmol/L Blood Urea Nitrogen 13 mg/dl Creatinine 0.82 mg/dl Est Creatinine Clear Calc Drug Dose 125.1 ml/min Estimated GFR () 120.2 Estimated GFR (Non- 103.7 BUN/Creatinine Ratio 15.8 Random Glucose 317 mg/dl Estimated Average Glucose 203 mg/dl Hemoglobin A1c 8.7 % Calcium Level 9.4 mg/dl Total Bilirubin 0.8 mg/dl Direct Bilirubin 0.2 mg/dl Aspartate Amino Transf (AST/SGOT) 21 U/L Alanine Aminotransferase (ALT/SGPT) 16 U/L Alkaline Phosphatase 88 U/L Troponin I < 0.015 ng/ml Total Protein 7.7 gm/dl Albumin 3.8 gm/dl Lipase 39 U/L Beta-Hydroxybutyric Acid 30.31 mg/dL Procalcitonin 0.05 ng/ml Human Chorionic Gonadotropin, Qual NEG Test 04/28/17 15:48 04/28/17 15:54 04/28/17 16:36 04/28/17 17:36 Arterial Blood pH 7.34 Arterial Blood Partial Pressure CO2 33 mmHg Arterial Blood Partial Pressure O2 99 mm/Hg Arterial Blood HCO3 18 mmol/L Arterial Blood Oxygen Saturation 97.4 % Arterial Blood Base Excess -7.1 mEq/L Arterial Blood Gas Delivery RA Jack Test POS Sodium Level 138 mmol/L Potassium Level 4.0 mmol/L Chloride Level 107 mmol/L Carbon Dioxide Level 18 mmol/L Anion Gap 13.0 mmol/L Blood Urea Nitrogen 14 mg/dl Creatinine 0.73 mg/dl Est Creatinine Clear Calc Drug Dose 140.6 ml/min Estimated GFR () 138.4 Estimated GFR (Non- 119.4 BUN/Creatinine Ratio 18.7 Random Glucose 241 mg/dl Lactic Acid Level 1.3 mmol/L Calcium Level 8.5 mg/dl Phosphorus Level 2.7 mg/dl Magnesium Level 1.6 mg/dl Bedside Glucose 186 mg/dl 156 mg/dl Test 04/28/17 18:30 04/28/17 19:29 04/28/17 19:50 04/28/17 20:31 Bedside Glucose 144 mg/dl 126 mg/dl 118 mg/dl Venous Blood pH 7.36 Sodium Level 139 mmol/L Potassium Level 3.9 mmol/L Chloride Level 109 mmol/L Carbon Dioxide Level 20 mmol/L Anion Gap 10.0 mmol/L Blood Urea Nitrogen 11 mg/dl Creatinine 0.67 mg/dl Est Creatinine Clear Calc Drug Dose 153.1 ml/min Estimated GFR () 147.7 Estimated GFR (Non- 127.4 BUN/Creatinine Ratio 16.6 Random Glucose 119 mg/dl Calcium Level 8.3 mg/dl Phosphorus Level 3.2 mg/dl Magnesium Level 2.0 mg/dl Total Creatine Kinase 297 U/L Creatine Kinase MB 1.4 ng/ml Creatine Kinase MB Ratio 0.5 Troponin I < 0.015 ng/ml Test 04/28/17 20:57 04/28/17 21:10 04/28/17 22:12 04/28/17 23:13 Bedside Glucose 128 mg/dl 167 mg/dl 198 mg/dl 302 mg/dl Test 04/28/17 23:34 04/29/17 00:13 04/29/17 01:07 04/29/17 01:08 Venous Blood pH 7.32 Sodium Level 135 mmol/L Potassium Level 4.5 mmol/L Chloride Level 105 mmol/L Carbon Dioxide Level 18 mmol/L Anion Gap 13.0 mmol/L Blood Urea Nitrogen 10 mg/dl Creatinine 0.69 mg/dl Est Creatinine Clear Calc Drug Dose 148.7 ml/min Estimated GFR () 146.3 Estimated GFR (Non- 126.2 BUN/Creatinine Ratio 14.9 Random Glucose 339 mg/dl Calcium Level 8.3 mg/dl Phosphorus Level 3.6 mg/dl Magnesium Level 1.9 mg/dl Beta-Hydroxybutyric Acid 32.47 mg/dL Bedside Glucose 300 mg/dl 313 mg/dl Total Creatine Kinase 276 U/L Creatine Kinase MB 1.3 ng/ml Creatine Kinase MB Ratio 0.5 Troponin I < 0.015 ng/ml Test 04/29/17 02:25 04/29/17 03:09 04/29/17 03:51 04/29/17 04:14 Bedside Glucose 301 mg/dl 328 mg/dl 341 mg/dl White Blood Count 17.67 K/uL Red Blood Count 4.28 M/uL Hemoglobin 12.1 g/dL Hematocrit 37.4 % Mean Corpuscular Volume 87.4 fL Mean Corpuscular Hemoglobin 28.3 pg Mean Corpuscular Hemoglobin Concent 32.4 g/dl Platelet Count 338 K/uL Mean Platelet Volume 9.7 fL Neutrophils (%) (Auto) 83.3 % Lymphocytes (%) (Auto) 10.4 % Monocytes (%) (Auto) 5.3 % Eosinophils (%) (Auto) 0.2 % Basophils (%) (Auto) 0.2 % Neutrophils # (Auto) 14.72 K/uL Lymphocytes # (Auto) 1.83 K/uL Monocytes # (Auto) 0.94 K/uL Eosinophils # (Auto) 0.04 K/uL Basophils # (Auto) 0.04 K/uL RDW Standard Deviation 44.8 fL RDW Coefficient of Variation 14.0 % Immature Granulocyte % (Auto) 0.6 % Immature Granulocyte # (Auto) 0.10 K/uL Venous Blood pH 7.29 Sodium Level 133 mmol/L Potassium Level 4.7 mmol/L Chloride Level 104 mmol/L Carbon Dioxide Level 16 mmol/L Anion Gap 13.0 mmol/L Blood Urea Nitrogen 10 mg/dl Creatinine 0.80 mg/dl Est Creatinine Clear Calc Drug Dose 128.3 ml/min Estimated GFR () 123.9 Estimated GFR (Non- 106.9 BUN/Creatinine Ratio 12.1 Random Glucose 370 mg/dl Calcium Level 8.1 mg/dl Phosphorus Level 2.8 mg/dl Magnesium Level 1.9 mg/dl Beta-Hydroxybutyric Acid 39.60 mg/dL Test 04/29/17 05:03 04/29/17 06:06 04/29/17 07:18 04/29/17 07:59 Bedside Glucose 366 mg/dl 272 mg/dl 219 mg/dl Venous Blood pH 7.33 Sodium Level 136 mmol/L Potassium Level 4.2 mmol/L Chloride Level 108 mmol/L Carbon Dioxide Level 19 mmol/L Anion Gap 9.0 mmol/L Blood Urea Nitrogen 8 mg/dl Creatinine 0.69 mg/dl Est Creatinine Clear Calc Drug Dose 148.9 ml/min Estimated GFR () 146.3 Estimated GFR (Non- 126.2 BUN/Creatinine Ratio 12.2 Random Glucose 219 mg/dl Calcium Level 8.3 mg/dl Phosphorus Level 2.5 mg/dl Magnesium Level 1.9 mg/dl Test 04/29/17 08:12 04/29/17 09:08 Bedside Glucose 218 mg/dl 167 mg/dl Assessment & Plan 21 yo with DKA 2/2 noncompliance with insulin 1. DKA-Type I DM on insulin pump which malfunctioned overnight and she was out of insulin. Used grandmother's insulin-presented in DKA later that day-likely with elevated BS overnight. No symptoms of infection at this point with reports of resolving URI from 2 weeks ago. Cont IVF, insulin. Apprec glycemic pharmacy recs. Pt not eating at this time. 2. Chest pain-began after vomiting yesterday. Is a constant burning pain substernally. Suspect heartburn. Tums/Maalox/Pepcid for symptom management. Pt will likely be better once tolerating PO. Chest wall noted to be tender on admission. Serial cardiac enzymes negative. EKG ST no ischemic changes. 3. Diarrhea-resolved on admission. C-diff was ordered, however, cancelled in setting of no BM in 24 hours and only 2 episodes reported [employer]. 4. Asthma-childhood diagnosis, denies using albuterol at home but requesting it here because it makes her feel better. Pt denies coughing, wheezing or shortness of breath. 5. Anxiety/depression: H/o admission to the [facility] in November for suicidal ideation. Currently stable, no SI/HI. Continue sertraline 100mg daily 6. Leukocytosis-likely related to stress reaction in setting of DKA. No overt signs or symptoms of infection present. Has improved since admission. DVT Ppx: Jason grace Code status: FULL PCP: Abbe Mckenzie Dispo: Plan to return home once medically stable Georgia Hall DO [facility] Hospitalist Current Inpatient Medications: Current Inpatient Medications Medications (Trade) Dose Ordered Sig/Mary Anne Route Start Time Stop Time Status Last Admin Dose Admin Insulin Human Regular 250 units/ Sodium Chloride 252.5 ml @ 2.5 mls/hr DAILY@1130 IV 04/28/17 14:51 04/29/17 11:29 04/28/17 15:29 2.5 MLS/HR Ondansetron HCl (Zofran Inj) 4 mg Q6H PRN IV 04/28/17 15:15 05/28/17 15:14 04/29/17 01:35 4 MG Insulin Aspart (novoLOG ASPART) SLIDING SCALE PCHS SC 04/28/17 17:15 05/28/17 18:59 Miscellaneous Information (PENDING NSS+20mEq KCL IVF) 1 ea Q2H N/A 04/28/17 15:15 05/28/17 15:14 Miscellaneous Information (Consult Glycemic Management Pharmacy) 1 ea UD PRN N/A 04/28/17 15:15 05/28/17 15:14 Albuterol (Ventolin Hfa Inhaler) 2 puffs Q4 INH 04/28/17 20:00 05/28/17 19:59 04/29/17 07:54 2 PUFFS Sertraline HCl (Zoloft Tab) 100 mg DAILY PO 04/29/17 09:00 05/29/17 08:59 04/29/17 07:54 100 MG Miscellaneous (Iv Fluids Completed) 1 ea PRN PRN N/A 04/28/17 16:45 04/28/18 16:44 Insulin Human Regular 250 units/ Sodium Chloride 252.5 ml @ 0 mls/hr DAILY@1130 IV 04/29/17 11:30 05/29/17 11:29 04/28/17 19:58 0.3 MLS/HR Glucose (Glucose 40% Gel) UD PRN PO 04/28/17 16:45 05/28/17 16:44 Glucose (Glucose Chew Tab) 1 tabs UD PRN PO 04/28/17 16:45 05/28/17 16:44 Dextrose (Dextrose 50% 50ML Syringe) 50 ml UD PRN IV 04/28/17 16:45 05/28/17 16:44 Glucagon (Glucagon Inj) 1 mg UD PRN SQ 04/28/17 16:45 05/28/17 16:44 Famotidine 20 mg/ Syringe 5 ml @ 2.5 mls/min Q12 IV 04/28/17 21:00 05/28/17 20:59 04/29/17 07:52 2.5 MLS/MIN Sodium Chloride 1,000 ml @ 200 mls/hr Q5H IV 04/29/17 05:15 05/29/17 05:14 04/29/17 05:29 200 MLS/HR Dextrose/Sodium Chloride 1,000 ml @ 100 mls/hr Q10H PRN IV 04/29/17 05:15 05/29/17 05:14 Al Hydroxide/Mg Hydroxide (Maalox Susp) 15 ml Q6H PRN PO 04/29/17 09:00 05/29/17 08:59
--- NOTE | 2017-04-29 12:22 | Pharmacy Progress Note ---
Glycemic Control Intl Consult Date of Service Apr 29, 2017. Scope Glycemic Pharmacist consulted by Akilah Garcia PA-C on 04/28 for glycemic control and to write orders per [facility] inpatient glycemic control protocol Objective Weight (Kilograms): 101.200 Accuchecks BSG (last 24hrs): Test 04/28/17 12:44 04/28/17 13:14 04/28/17 14:16 04/28/17 15:54 Bedside Glucose 267 mg/dl (70-90) 250 mg/dl (70-90) Random Glucose 317 mg/dl (70-99) 241 mg/dl (70-99) Test 04/28/17 16:36 04/28/17 17:36 04/28/17 18:30 04/28/17 19:29 Bedside Glucose 186 mg/dl (70-90) 156 mg/dl (70-90) 144 mg/dl (70-90) 126 mg/dl (70-90) Test 04/28/17 19:50 04/28/17 20:31 04/28/17 20:57 04/28/17 21:10 Random Glucose 119 mg/dl (70-99) Bedside Glucose 118 mg/dl (70-90) 128 mg/dl (70-90) 167 mg/dl (70-90) Test 04/28/17 22:12 04/28/17 23:13 04/28/17 23:34 04/29/17 00:13 Bedside Glucose 198 mg/dl (70-90) 302 mg/dl (70-90) 300 mg/dl (70-90) Random Glucose 339 mg/dl (70-99) Test 04/29/17 01:08 04/29/17 02:25 04/29/17 03:09 04/29/17 03:51 Bedside Glucose 313 mg/dl (70-90) 301 mg/dl (70-90) 328 mg/dl (70-90) Random Glucose 370 mg/dl (70-99) Test 04/29/17 04:14 04/29/17 05:03 04/29/17 06:06 04/29/17 07:18 Bedside Glucose 341 mg/dl (70-90) 366 mg/dl (70-90) 272 mg/dl (70-90) 219 mg/dl (70-90) Test 04/29/17 07:59 04/29/17 08:12 04/29/17 09:08 04/29/17 10:12 Random Glucose 219 mg/dl (70-99) Bedside Glucose 218 mg/dl (70-90) 167 mg/dl (70-90) 159 mg/dl (70-90) Test 04/29/17 11:08 04/29/17 11:45 04/29/17 12:00 Bedside Glucose 149 mg/dl (70-90) 180 mg/dl (70-90) Laboratory Data (last 24hrs) Test 04/28/17 13:14 04/28/17 15:54 04/28/17 19:50 04/28/17 23:34 Anion Gap 15.0 mmol/L 13.0 mmol/L 10.0 mmol/L 13.0 mmol/L BUN/Creatinine Ratio 15.8 18.7 16.6 14.9 Blood Urea Nitrogen 13 mg/dl 14 mg/dl 11 mg/dl 10 mg/dl Creatinine 0.82 mg/dl 0.73 mg/dl 0.67 mg/dl 0.69 mg/dl Hemoglobin A1c 8.7 % Potassium Level 4.0 mmol/L 4.0 mmol/L 3.9 mmol/L 4.5 mmol/L Sodium Level 135 mmol/L 138 mmol/L 139 mmol/L 135 mmol/L White Blood Count 20.41 K/uL Red Blood Count 4.73 M/uL Hemoglobin 13.9 g/dL Hematocrit 41.3 % Mean Corpuscular Volume 87.3 fL Mean Corpuscular Hemoglobin 29.4 pg Mean Corpuscular Hemoglobin Concent 33.7 g/dl Platelet Count 404 K/uL Mean Platelet Volume 10.0 fL Neutrophils (%) (Auto) 87.2 % Lymphocytes (%) (Auto) 7.7 % Monocytes (%) (Auto) 4.0 % Eosinophils (%) (Auto) 0.5 % Basophils (%) (Auto) 0.2 % Neutrophils # (Auto) 17.80 K/uL Lymphocytes # (Auto) 1.57 K/uL Monocytes # (Auto) 0.81 K/uL Eosinophils # (Auto) 0.10 K/uL Basophils # (Auto) 0.05 K/uL Test 04/29/17 03:51 04/29/17 07:59 04/29/17 12:00 Anion Gap 13.0 mmol/L 9.0 mmol/L BUN/Creatinine Ratio 12.1 12.2 Blood Urea Nitrogen 10 mg/dl 8 mg/dl Creatinine 0.80 mg/dl 0.69 mg/dl Potassium Level 4.7 mmol/L 4.2 mmol/L Sodium Level 133 mmol/L 136 mmol/L White Blood Count 17.67 K/uL Red Blood Count 4.28 M/uL Hemoglobin 12.1 g/dL Hematocrit 37.4 % Mean Corpuscular Volume 87.4 fL Mean Corpuscular Hemoglobin 28.3 pg Mean Corpuscular Hemoglobin Concent 32.4 g/dl Platelet Count 338 K/uL Mean Platelet Volume 9.7 fL Neutrophils (%) (Auto) 83.3 % Lymphocytes (%) (Auto) 10.4 % Monocytes (%) (Auto) 5.3 % Eosinophils (%) (Auto) 0.2 % Basophils (%) (Auto) 0.2 % Neutrophils # (Auto) 14.72 K/uL Lymphocytes # (Auto) 1.83 K/uL Monocytes # (Auto) 0.94 K/uL Eosinophils # (Auto) 0.04 K/uL Basophils # (Auto) 0.04 K/uL HbA1c Test 04/28/17 13:14 Hemoglobin A1c 8.7 % (4.5-5.6) H Recent Pertinent Medications Outpatient Anti-diabetic Regimen: * metformin 500mg BID, novolog pump (unknown settings) * A1c = 8.7 % 04/28/17 The patient is currently receiving: * Insulin drip per protocol Assessment & Plan ASSESSMENT: * 21 YO type I diabetic unknown to glycemic service admitted overnight with DKA. Patient initiated on insulin drip. * DKA resolved per most recent PRP and per MD, patient to eat lunch this afternoon * Given diet ordered, fluids to be discontinued and patient to be transitioned off of drip * Per patient/nurse- will bring home supplies and transition at that time * ADA & AACE recommend a goal blood sugar range 140-180 mg/dl for the majority of critically ill & non-critically ill patients. However, more stringent targets may be selected in individual cases. PLAN FOR INPATIENT GLYCEMIC CONTROL: * Continue insulin drip per protocol until home supplies brought in * Goal range 150-250 mg/dL * Restart Novolog pump per home settings and monitor every 4 hours * Overlap with insulin drip for ~2 hrs * Please note that the plan above was derived based on current level of insulin resistance and hospital stress. These recommendations are appropriate for inpatient admission only. Plan of care upon discharge will need to be reassessed to avoid potential outpatient hypo/hyperglycemia. Thank you.
[2017-04-29 13:19] LABS: BUN/CREATININE RATIO 8.6 (10-20); CALCIUM 8.1 mg/dl (8.5-10.1); CREATININE 0.72 mg/dl (0.60-1.20); POTASSIUM 4.2 mmol/L (3.5-5.1)
[2017-04-29] MEDS ORDERED: INSULIN ASPART 100 UNITS/ML VIAL SC PRN (15:15)
--- NOTE | 2017-04-29 15:56 | ECHOCARDIOGRAM REPORT ---
*NOTICE TO RECEIVING DEMOCRAT AGENCY This information is strictly Confidential and protected under [place] law. [place] law prohibits you from making any further disclosure of this information unless further disclosure is expressly permitted by the written consent of the person to whom it pertains or is authorized by law. A general authorization for the release of medical or other information is not sufficient for this purpose. Hospital accepts no responsibility if the information is made available to any other person, INCLUDING THE PATIENT. Interpretation Summary * Name: DIONNE YANG Study Date: 04/29/2017 06:45 AM BP: 119/55 mmHg * Patient Location: C.2E\S\E202\S\1 HR: 85 * : 1995 (M/d/yyyy) Gender: Female Height: 63 in * Age: 21 yrs Ethnicity: CA Weight: 222 lb * Ordering Physician: Vasyl Butler * Referring Physician: Self, Referred * Performed By: Mary Brooks RDCS * * Reason For Study: CHEST PAIN * BSA: 2.0 m2 * The study was technically limited. * There is no comparison study available. * -- Conclusions -- * Ejection Fraction = 65-70%. * The left ventricular wall motion is normal. * Pulse wave TDI of the anterior and posterior mitral annulas demonstrates normal LV relaxation Procedure Details * A contrast injection of Definity was performed to improve assessment of LV function. * Contrast was injected into an intravenous site in the right arm. * One vial of Definity ultrasound contrast was diluted in normal saline to a total volume of 10 ml. A total of '2' ml of solution was administered during imaging. * Lot # [id number] of Definity utilized for procedure. * Expiration date JUN 16. * The attending nurse who injected the contrast agent was JOEL ELLIS. * A complete two-dimensional transthoracic echocardiogram was performed (2D, M-mode, Doppler and color flow Doppler). Left Ventricle * The left ventricle is normal in size. * There is no thrombus. * There is normal left ventricular wall thickness. * Ejection Fraction = 65-70%. * Left ventricular systolic function is normal. * The left ventricular wall motion is normal. Right Ventricle * The right ventricle is normal size. * The right ventricular systolic function is normal as assessed by tricuspid annular plane systolic excursion (TAPSE) (normal >1.5 cm). Atria * The left atrial size is normal. * Right atrial size is normal. * There is no evidence of atrial septal defect, but resolution does not allow assessment for a patent foramen ovale. Mitral Valve * The mitral valve is normal. * There is no mitral valve stenosis. * Significant mitral regurgitation is absent. Tricuspid Valve * The tricuspid valve is not well visualized. * There is no tricuspid stenosis. * Significant tricuspid regurgitation is absent. Aortic Valve * The aortic valve is not well visualized. * Aortic stenosis is absent. * There is no significant aortic regurgitation. Pulmonic Valve * The pulmonary valve is not well seen, but the Doppler examination is normal without significant regurgitation or stenosis. Great Vessels * The aortic root is normal size. Pericardium/Pleural * There is no pericardial effusion. Great Vessels * Normal inferior vena cava diameter and respiratory variation suggests normal central venous pressure. Left Ventricular Diastolic Function * Pulse wave TDI of the anterior and posterior mitral annulas demonstrates normal LV relaxation MMode 2D Measurements and Calculations IVSd 1.0 cm IVSs 1.6 cm LVIDd 5.0 cm LVIDs 2.7 cm LVPWd 0.90 cm LVPWs 1.5 cm IVS/LVPW 1.1 FS 45.6 % EDV(Teich) 116.4 ml ESV(Teich) 27.1 ml EF(Teich) 76.7 % EDV(cubed) 122.5 ml ESV(cubed) 19.7 ml EF(cubed) 83.9 % % IVS thick 57.5 % % LVPW thick 62.9 % LV mass(C)d 169.0 grams LV mass(C)dI 83.6 grams/m\S\2 LV mass(C)s 142.9 grams LV mass(C)sI 70.7 grams/m\S\2 SV(Teich) 89.3 ml SI(Teich) 44.2 ml/m\S\2 SV(cubed) 102.8 ml SI(cubed) 50.8 ml/m\S\2 Ao root diam 2.3 cm Ao root area 4.1 cm\S\2 LA dimension 3.4 cm LA/Ao 1.5 LVAd ap4 24.7 cm\S\2 LVLd ap4 8.3 cm EDV(MOD-sp4) 60.9 ml EDV(sp4-el) 62.2 ml LVAs ap4 13.8 cm\S\2 LVLs ap4 7.0 cm ESV(MOD-sp4) 22.9 ml ESV(sp4-el) 23.4 ml EF(MOD-sp4) 62.5 % EF(sp4-el) 62.4 % LVAd ap2 23.3 cm\S\2 LVLd ap2 8.4 cm EDV(MOD-sp2) 53.1 ml EDV(sp2-el) 55.0 ml LVAs ap2 12.0 cm\S\2 LVLs ap2 6.2 cm ESV(MOD-sp2) 21.0 ml ESV(sp2-el) 19.6 ml EF(MOD-sp2) 60.5 % EF(sp2-el) 64.3 % LVLd %diff 1.3 % EDV(MOD-bp) 57.6 ml LVLs %diff -12.17 % ESV(MOD-bp) 22.7 ml EF(MOD-bp) 60.7 % SV(MOD-sp4) 38.1 ml SI(MOD-sp4) 18.8 ml/m\S\2 SV(MOD-sp2) 32.1 ml SI(MOD-sp2) 15.9 ml/m\S\2 SV(MOD-bp) 35.0 ml SI(MOD-bp) 17.3 ml/m\S\2 SV(sp4-el) 38.8 ml SI(sp4-el) 19.2 ml/m\S\2 SV(sp2-el) 35.4 ml SI(sp2-el) 17.5 ml/m\S\2 Doppler Measurements and Calculations MV E max rodrigo 139.6 cm/sec MV A max rodrigo 111.4 cm/sec MV E/A 1.3 MV dec time 0.18 sec Ao V2 max 165.7 cm/sec Ao max PG 11.0 mmHg Ao max PG (full) 4.1 mmHg LV V1 max PG 6.9 mmHg LV V1 max 131.1 cm/sec
[2017-04-29] MEDS ORDERED: NovoLOG INSULIN PUMP SCH (16:00)
[2017-04-29] MEDS ORDERED: GLUCOSE 10 TABS/TUBE PO PRN (23:45)
[2017-04-30 03:50] VITALS: BP 129/66; PULSE 82; TEMP 36.9; O2SAT 98
[2017-04-30] MEDS: ALBUTEROL HFA 8 GM INHALER INH SCH ×3 (04:00→09:46)
[2017-04-30 06:35] LABS: BASO % 0.4 %; BASO ABS # 0.04 K/uL (0-0.2); COMPLETE YES; EOS % 1.7 %; HEMATOCRIT 38.8 % (37-47); IG% 0.2 %; LYMPH % 28.6 %; MEAN CELL VOLUME 87.2 fL (80-100); MEAN CORPUSCULAR HEMOGLOBIN 27.9 pg (25-34); MEAN PLATELET VOLUME 9.7 fL (7.4-10.4); MONO % 6.9 %; NEUT % 62.2 %; PLATELET COUNT 358 K/uL (130-400); RED BLOOD COUNT 4.45 M/uL (4.2-5.4); WHITE BLOOD COUNT 9.08 K/uL (4.8-10.8)
[2017-04-30 07:04] LABS: BUN/CREATININE RATIO 8.4 (10-20); CALCIUM 8.5 mg/dl (8.5-10.1); CREATININE 0.79 mg/dl (0.60-1.20); MAGNESIUM 1.8 mg/dl (1.8-2.4); POTASSIUM 4.4 mmol/L (3.5-5.1)
[2017-04-30 07:26] LABS: BETA-HYDROXYBUTYRATE 32.34 mg/dL (0.2-2.81)
[2017-04-30 07:53] VITALS: BP 146/75; PULSE 77; TEMP 36.8; O2SAT 98
--- NOTE | 2017-04-30 09:29 | Pharmacy Progress Note ---
Glycemic Control Progress Note Date of Service Apr 30, 2017. Scope Glycemic Pharmacist consulted for glycemic control to write orders per [facility] ED inpatient glycemic control protocol. Objective Accuchecks BSG (last 24hrs): Test 04/29/17 10:12 04/29/17 11:08 04/29/17 11:45 04/29/17 12:41 Bedside Glucose 159 mg/dl (70-90) 149 mg/dl (70-90) 180 mg/dl (70-90) Random Glucose 237 mg/dl (70-99) Test 04/29/17 12:49 04/29/17 13:50 04/29/17 14:56 04/29/17 15:58 Bedside Glucose 244 mg/dl (70-90) 235 mg/dl (70-90) 205 mg/dl (70-90) 176 mg/dl (70-90) Test 04/29/17 16:56 04/29/17 18:32 04/29/17 20:06 04/29/17 20:07 Bedside Glucose 148 mg/dl (70-90) 112 mg/dl (70-90) 60 mg/dl (70-90) 66 mg/dl (70-90) Test 04/29/17 20:17 04/29/17 20:18 04/29/17 20:34 04/29/17 22:40 Bedside Glucose 61 mg/dl (70-90) 126 mg/dl (70-90) 67 mg/dl (70-90) Test 04/29/17 22:41 04/29/17 22:49 04/29/17 23:19 04/30/17 02:06 Bedside Glucose 76 mg/dl (70-90) 72 mg/dl (70-90) 113 mg/dl (70-90) 173 mg/dl (70-90) Test 04/30/17 06:04 04/30/17 06:12 04/30/17 06:30 Random Glucose 423 mg/dl (70-99) Bedside Glucose 370 mg/dl (70-90) 364 mg/dl (70-90) HbA1c: Test 04/28/17 13:14 Hemoglobin A1c 8.7 % (4.5-5.6) H Recent Pertinent Medications The patient is currently receiving: * Oral Agents: Novolog Pump with the following settings * Basal settings: 8307-0430: 2.3 units/hr; 2070-1176: 2.4 units/hr; 2465-6846: 2.5 units/hr; 8468-3799 units/hr * Correction factor of 15 * Carbohydrate ratio of 1 unit for 5 grams of carbohydrates consumed Outpatient Anti-Diabetic Meds see above settings for Novolog pump Assessment & Plan ASSESSMENT: * See progress note from 04/29/17 for more background info, in short: * Pt receiving SQ basal bolus insulin regimen for hyperglycemia secondary to baseline DM (outpatient regimen on hold). * Patient is currently utilizing her pump on her home settings * BSGs ranging 75 - 423 mg/dl over the past 24hrs * Changes needed to insulin regimen: * AM Fasting BSG = 370 mg/dl. At midnight, the patient told the nurse that her insulin pump was going to "bolus" her. The nurse called the pharmacist regarding this "bolus" because the patient's blood sugar was in the 70s the entire evening. The pharmacist told the nurse to hold the "bolus" and recheck the patient in two hours. The patient's blood sugar continued to climb throughout the morning until it reached 423 mg/dL this morning. She received 14 units of correctional insulin. Through examination of the pump, a nurse Charlie was able to ascertain that the patient had turned off her basal rate from midnight to 7 AM. He educated the patient on what had occurred and then returned the basal rate to the prior rate. * Post-prandial BSGs are currently unknown. Lunch blood sugar was most likely be elevated secondary to lack of basal insulin this morning. * Total daily dose = currently unknown number of units. Will monitor closely. PLAN FOR INPATIENT GLYCEMIC CONTROL: * Continue home insulin pump RECOMMENDATIONS FOR DISCHARGE: * Patient's HbA1C is above goal (goal is less than or equal to 6.5% for HbA1C) however it is improved from September of this year by 1%. Recommend counseling on diet and exercise for patient. May benefit from seeing an endocrine clinic. * Please note that the plan above was derived based on current level of insulin resistance and hospital stress. These recommendations are appropriate for inpatient admission only. Plan of care upon discharge will need to be reassessed to avoid potential outpatient hypo/hyperglycemia. Thank you.
[2017-04-30 09:41] VITALS: O2SAT 98
[2017-04-30] MEDS: SERTRALINE HCL 100 MG TAB PO SCH (09:47)
[2017-04-30 11:04] VITALS: Ht 160 cm; Wt 99.4 kg
[2017-04-30 11:20] VITALS: BP 171/94; PULSE 74; TEMP 37; O2SAT 99
--- NOTE | 2017-04-30 11:27 | Discharge Summary ---
Discharge Summary Date of Service Apr 30, 2017. Discharge Summary Admission Date: Apr 28, 2017 at 15:32 Discharge Date: Apr 30, 2017 Discharge Disposition: Home Principal Diagnosis: DKA Anxiety/Depression Leukocytosis-resolved Atypical chest pain-resolved. Procedures: TTE (04/28): * Ejection Fraction = 65-70%. * The left ventricular wall motion is normal. * Pulse wave TDI of the anterior and posterior mitral annulas demonstrates normal LV relaxation Vaccinations: None. Consultations: None. Pending Studies/Follow-Up: see instructions below Medication Reconciliation Continued Medications: Albuterol Hfa (Ventolin Hfa) 200 Puffs/05697 Mcg Aers 2 PUFFS INH Q4H, #1 INHALER Insulin Aspart (novoLOG INSULIN PUMP ) 1 Ea Inj 1 EA N/A UD, EA Inject up to 300 units every other day via insulin pump. Insulin Aspart (Novolog Penfill) 100 Unit/Ml Inj 0 SQ UD TO USE IF INSULIN PUMP RUNS OUT Metformin Hcl (Glucophage) 500 Mg Tab 500 MG PO BID, TAB Ondansetron Hcl (Zofran) 4 Mg Tab 4 MG PO Q8 PRN for Nausea, TAB Sertraline (Zoloft) 100 Mg Tab 100 MG PO DAILY, TAB Admission Information HPI (per Admitting provider): This is a 21yo F with a PMH of DM Type 1 (on insulin pump), asthma, anxiety, depression and GERD who presents with nausea, vomiting and chest pain that started this morning. Patient has had a decreased appetite for the past two days but otherwise has been in a normal state of health. This morning, she woke up this morning feeling lightheaded, thirsty and nauseous. Endorses 4 episodes of bilious vomit as well as 2 episodes of diarrhea. States that these are all signs of elevated blood sugar for her. Did not think her pump was working and was later told by her roommate that the pump was beeping during the night. Went to take her back-up insulin but realized she was out of her Novolog flex pen as well. Took "around 100 units" of her grandmother's Novolin, which she knows is not her normal type of insulin. States that she went into DKA numerous times as a kid but has been managing her pump better over the past few years. After taking her grandmother's insulin, patient felt well enough to go to work. Once moving around at work, started to develop a sharp, 9/10 pressure on her central chest with radiation to both arms. States that it was exacerbated with movement and better with rest. Is tender to the touch. Endorses dizziness,polydipsia, decreased appetite, nausea, and 5/10 chest tenderness. Denies any headache, visual changes, palpitations, SOB, abdominal pain, diarrhea/constipation or LE swelling. Patient was treated with antibiotics 2 weeks ago for laryngitis. Physical Exam (per Admitting): General Appearance: no apparent distress, + obese Head: normocephalic, atraumatic Eyes: normal inspection, PERRL, EOMI, sclerae normal (conjunctiva normal ) ENT: normal ENT inspection, hearing grossly normal, pharynx normal (Dry mucous membranes ) Neck: supple, thyroid normal, trachea midline Respiratory/Chest: lungs clear, normal breath sounds, no respiratory distress, no accessory muscle use, + pertinent finding (TTP of chest wall ) Cardiovascular: regular rate, rhythm, no murmur, normal peripheral pulses Abdomen/GI: normal bowel sounds, non tender, soft, no organomegaly Extremities/Musculoskelatal: normal inspection, no calf tenderness, no pedal edema, non-tender Neurologic/Psych: no motor/sensory deficits, alert, normal mood/affect, oriented x 3 Skin: normal color, warm/dry, no rash Hospital Course 21 yo F on insulin pump at home presents with DKA. She was placed on an insulin drip and given IVF resuscitation. Her gap closed overnight and she was feeling much better the following day. She had some chest pain that was of a burning nature and substernal starting after vomiting. Workup was not consistent with ACS and an echo was performed and was normal. Chest pain resolved after she started eating again and was attributed to heartburn from vomiting up gastric contents. Her blood sugar came into the normal range and she began eating food on HD2 without issue. Later that night she was found to be slightly hypoglycemic, and there was some confusion about holding her bolus dose on the pump. Instead the basal rate was held, so she received no insulin for 7 hours and also had no coverage for her snack that she ate. Subsequently, her blood sugar went up to 400 the following morning, however, this was corrected when the new basal rate kicked in at 0700 and with a Novolog bolus. By lunchtime blood sugars were normal, she was feeling well, was afebrile and hemodynamically stable and was eager to go home. On day of discharge physical exam was unremarkable and she was asymptomatic and ambulatory. She was sent home in good condition with close PCP follow-up scheduled. Total time spent on discharge = 60 minutes This includes examination of the patient, discharge planning, medication reconciliation, and communication with other providers. Discharge Instructions [address] [address] Discharge Medical Patient Name: Maritza Morgan Unit Number: [id number] Date of : 1995 Patient Status: Admitted Inpatient Attending Doctor: Georgia Hall DO DI: Medical v4 Discharge Instructions Date of Service Apr 30, 2017. Admission Reason for Admission: Chest Pain,Dka Type 1 Discharge Discharge Diagnosis / Problem: DKA Discharge Goals Goal(s): Therapeutic intervention Activity Recommendations Activity Limitations: per Instructions/Follow-up section . Instructions / Follow-Up Instructions / Follow-Up Please continue all medications as above. Please follow-up with your PCP as scheduled (Dr. Mckenzie) on 04/05 @ 10: 15. It was a pleasure taking care of you! Call if you have any questions or problems. You can reach a [facility] hospitalist on duty at [facility] 24 hours a day by calling [phone]. Take care of yourself. Georgia Hall DO [facility] Hospitalist Current Hospital Diet Patient's current hospital diet: Diabetes Type 1 Diet Discharge Diet Recommended Diet: Diabetes Type 1 Diet Procedures Procedures Performed: TTE (04/28): -- Conclusions -- Ejection Fraction = 65-70%. The left ventricular wall motion is normal. Pulse wave TDI of the anterior and posterior mitral annulas demonstrates normal LV relaxation Pending Studies Studies pending at discharge: no Laboratory Results Hemoglobin A1c Test 04/28/17 13:14 Range/Units Estimated Average Glucose 203 mg/dl Hemoglobin A1c 8.7 H 4.5-5.6 % Medical Emergencies . Who to Call and When: Medical Emergencies: If at any time you feel your situation is an emergency, please call 911 immediately. . Non-Emergent Contact Non-Emergency issues call your: Primary Care Provider . . "Provider Documentation" section prepared by Georgia Hall. . VTE Core Measure Inpt VTE Proph given/why not?: Yanet Stockings Additional Copies To Carol Mckenzie D.O.
[2017-04-30 13:09] VITALS: BP 171/94; PULSE 74; TEMP 37; O2SAT 99
== END 2017-04-30 13:48 | disposition home or self-care (01) | DRG 639 ==
LOC: C.EDB 12:30 → ENRESERV 15:29 → C.2E 15:32 → EDBEDREQ 15:38
PROVIDERS: ADMIT Internal Medicine; ATTEND Hospitalist
DX: E10.10 Type 1 diabetes mellitus with ketoacidosis without coma (principal); D72.829 Elevated white blood cell count, unspecified; R07.89 Other chest pain; F32.9 Major depressive disorder, single episode, unspecified; K21.9 Gastro-esophageal reflux disease without esophagitis; F41.9 Anxiety disorder, unspecified; K29.60 Other gastritis without bleeding; E66.9 Obesity, unspecified; J45.909 Unspecified asthma, uncomplicated; F17.200 Nicotine dependence, unspecified, uncomplicated; Z79.4 Long term (current) use of insulin; Z79.84 Long term (current) use of oral hypoglycemic drugs; Z79.899 Other long term (current) drug therapy; Z96.41 Presence of insulin pump (external) (internal); Z91.14 Patient's other noncompliance with medication regimen; Z68.38 Body mass index [BMI] 38.0-38.9, adult

== ENCOUNTER 2017-11-01 13:37 | Inpatient (IN) | payer OTHER ==
[~2017-11-01] VITALS: Ht 160 cm; Wt 98.1 kg
[~2017-11-01 13:37] MED LIST changes: +GLC/500 PO; +INSPMPNVLG; +ONDA4TAB46 PO; +SERT-234 PO; +VNTHFA/IN INH
[2017-11-01] MEDS ORDERED: SODIUM CHLORIDE 0.9% 1000ML 1,000 ML IV STA ×2 (14:03→15:08)
[2017-11-01] MEDS ORDERED: ONDANSETRON INJ 2 MG/ML 2 ML VIAL IV STA (14:03)
[2017-11-01] MEDS ORDERED: SODIUM CHLORIDE 0.9% 1000ML 1,000 ML IV ONE ×2 (14:03→15:49)
[2017-11-01] MEDS ORDERED: NovoLIN-R INSULIN PER UNIT CHARGE SC STA (14:13)
[2017-11-01 14:15] LABS: HEMATOCRIT 40.7 % (37-47); HEMOGLOBIN 13.8 g/dL (12.0-16.0); MEAN CELL VOLUME 88.1 fL (80-100); MEAN CORPUSCULAR HEMOGLOBIN 29.9 pg (25-34); MEAN CORPUSCULAR HGB CONC 33.9 g/dl (32-36); MEAN PLATELET VOLUME 10.5 fL (7.4-10.4); PLATELET COUNT 415 K/uL (130-400); RED CELL DISTRIBUTION WIDTH CV 14.1 % (11.5-14.5); RED CELL DISTRIBUTION WIDTH SD 45.8 fL (36.4-46.3); WHITE BLOOD COUNT 25.69 K/uL (4.8-10.8)
[2017-11-01 14:32] LABS: ALBUMIN 3.9 gm/dl (3.4-5.0); BASO % 0.2 %; BASO ABS # 0.05 K/uL (0-0.2); CALCIUM 9.4 mg/dl (8.5-10.1); CREATININE 0.97 mg/dl (0.60-1.20); EOS % 0.2 %; EOS ABS # 0.06 K/uL (0-0.5); IG# 0.08 K/uL (0.00-0.02); LYMPH % 4.7 %; LYMPH ABS # 1.21 K/uL (1.2-3.4); MONO % 2.6 %; MONO ABS # 0.68 K/uL (0.11-0.59); NEUT ABS # 23.61 K/uL (1.4-6.5); POTASSIUM 4.5 mmol/L (3.5-5.1); TOTAL PROTEIN 7.7 gm/dl (6.4-8.2)
--- NOTE | 2017-11-01 14:50 | DIAGNOSTIC IMAGING REPORT ---
CHEST ONE VIEW PORTABLE CLINICAL HISTORY: 22 years-old Female presenting with CHEST PAIN. TECHNIQUE: Portable upright AP view of the chest was obtained. COMPARISON: 04/28/2017. FINDINGS: Cardiomediastinal silhouette normal. No focal opacity. No large effusion or pneumothorax. Osseous structures normal. Upper abdomen normal. IMPRESSION: 1. No acute cardiopulmonary disease. Electronically signed by: Geovanny Hardy M.D. 11/01/2017 2:49 PM Dictated Date/Time: 11/01/2017 2:48 PM
[2017-11-01] MEDS ORDERED: OPTIRAY 320 IV PRN (15:00)
--- NOTE | 2017-11-01 15:20 | EMERGENCY ROOM VISIT NOTE ---
History Report prepared by José Miguel: Romana Corral Under the Supervision of: Dr. Matt Lund M.D. First contact with patient: 13:55 Chief Complaint: CHEST PAIN Stated Complaint: CHEST PAIN Nursing Triage Summary: Pt c/o midsternal CP since this am when she started Vomiting, the last hour the pain got worse. Pt diaphoretic. Pt wrything, moaning. History of Present Illness The patient is a 22 year old female who presents to the Emergency Room with complaints of worsening mid chest pain starting this morning. The pain is severe. The pain started after she began vomiting this morning. She denies any abdominal pain or fever. She has a history of DKA. She reports her symptoms were never this severe with her DKA before. She denies any recent illness, injury, or travel. Her last menstrual period was 2 weeks ago. She denies any chance of . She denies eating any new foods recently. She denies trying to hurt herself. She denies any new medications. She is taking her medications as directed. Source of History: patient, family Onset: this morning Position: chest (mid) Symptom Intensity: severe Timing: worsening Associated Symptoms: + vomiting, No fevers, No abdominal pain Review of Systems See HPI for pertinent positives & negatives. A total of 10 systems reviewed and were otherwise negative. Past Medical & Surgical Medical Problems: (1) Anxiety (2) Asthma, Unspecified (3) Depression (4) Diabetes mellitus type 1 (5) GERD (gastroesophageal reflux disease) (6) Leukocytosis Old medical records were reviewed. Nurse's notes were reviewed and I agree with. Family History Diabetes mellitus FH: cancer FH: gallbladder disease Kidney disease Kidney stones Social History Smoking Status: Current Every Day Smoker Marital Status: single Housing Status: lives with family Occupation Status: student Current/Historical Medications Scheduled Albuterol Hfa (Ventolin Hfa), 2 PUFFS INH Q4H Insulin Aspart (novoLOG INSULIN PUMP ), 1 EA N/A UD Insulin Aspart (Novolog Penfill), 0 SQ UD Metformin Hcl (Glucophage), 500 MG PO BID Scheduled PRN Ondansetron Hcl (Zofran), 4 MG PO Q8 PRN for Nausea Allergies Coded Allergies: Amoxicillin (Verified Allergy, Intermediate, rash, 11/01/17) Clavulanic Acid (Verified Allergy, Intermediate, rash, 11/01/17) Loratadine (Unverified Allergy, Mild, 11/01/17) Red Dye (Verified Allergy, Unknown, `, 11/01/17) Penicillins (Unverified Adverse Reaction, Intermediate, RASH, 11/01/17) Physical Exam Vital Signs Date Time Temp Pulse Resp B/P (MAP) Pulse Ox O2 Delivery O2 Flow Rate FiO2 11/01/17 15:30 138/87 11/01/17 15:20 136/81 11/01/17 15:00 110/69 11/01/17 14:45 111/80 11/01/17 14:37 107 21 99 11/01/17 14:07 88 27 100 11/01/17 13:55 113/97 11/01/17 13:51 113 11/01/17 13:49 153/108 11/01/17 13:47 Room Air 11/01/17 13:47 36.5 113 26 153/108 99 Room Air Physical Exam General: Moderately-ill appearing young female, diaphoretic, complaining of nausea and chest pain. HEENT: Normal cephalic atraumatic. Pupils are equal round and reactive to light. Extraocular movements are intact. Oropharynx is pink with moist mucous membranes. No swelling of the mouth lips or tongue. Neck: Supple with a midline trachea. No meningeal signs or stiffness, no JVD or bruits. No Stridor. Chest: Clear to auscultation bilaterally. No wheezes or rhonchi. No increased work of breathing. Tender to palpation of anterior chest. Heart: regular rate and rhythm. Abdomen: Soft nontender, nondistended without rebound guarding or rigidity. Extremities: No cyanosis clubbing or edema. No calf tenderness or assymetry Spine/Back. Non tender to palpation. No CVA tenderness Skin: Good turgor without rashes. Neurologic exam: Cranial nerves two through 12 are intact. Motor and sensation are intact and symmetrical throughout. Medical Decision & Procedures ER Provider Diagnostic Interpretation: X-ray results as stated below per interpretation by me and the radiologist. Radiology results as stated below per my review and radiologist interpretation: CHEST ONE VIEW PORTABLE CLINICAL HISTORY: 22 years-old Female presenting with CHEST PAIN. TECHNIQUE: Portable upright AP view of the chest was obtained. COMPARISON: 04/28/2017. FINDINGS: Cardiomediastinal silhouette normal. No focal opacity. No large effusion or pneumothorax. Osseous structures normal. Upper abdomen normal. IMPRESSION: 1. No acute cardiopulmonary disease. Electronically signed by: Geovanny Hardy M.D. 11/01/2017 2:49 PM Dictated Date/Time: 11/01/2017 2:48 PM (CHEST FOR PE) ANGIO WITH CLINICAL HISTORY: 22 years-old Female presenting with mid sternal chest pain, clinical concern for pulmonary embolus. TECHNIQUE: Multidetector CT angiography of the chest was performed after administration of intravenous contrast. 3-D volumetric and/or maximum intensity projection (MIP) images were subsequently reconstructed for review. IV contrast: 87 mL of Optiray 320. A dose lowering technique was used consistent with the principles of ALARA (as low as reasonably achievable). COMPARISON: Chest x-ray performed earlier the same day. CT DOSE (mGy.cm): The estimated cumulative dose is 620.09 mGy.cm. FINDINGS: Timekeeping Supervisor topogram: Unremarkable. Pulmonary vasculature: The study is adequate for assessment of the pulmonary vascular tree. No filling defect within the pulmonary arteries to suggest embolus. Main pulmonary artery is not enlarged. No flattening of the interventricular septum. No intracardiac filling defect. No reflux of contrast into the hepatic veins. Remaining chest: On soft tissue windows, normal thyroid and thoracic inlet. No axillary, supraclavicular, hilar, or mediastinal lymphadenopathy. Normal aorta. Normal heart size. No pericardial or pleural effusion. Hepatic steatosis. On lung windows, no focal infiltrate or nodule. Airways patent. On bone windows, normal osseous structures. IMPRESSION: 1. No evidence of pulmonary embolus. No acute intrathoracic pathology. 2. Hepatic steatosis. Electronically signed by: Geovanny Hardy M.D. 11/01/2017 3:28 PM Dictated Date/Time: 11/01/2017 3:24 PM Laboratory Results 11/01/17 13:55 Red Blood Count 4.62, Mean Corpuscular Volume 88.1, Mean Corpuscular Hemoglobin 29.9, Mean Corpuscular Hemoglobin Concent 33.9, Mean Platelet Volume 10.5, Neutrophils (%) (Auto) 92.0, Lymphocytes (%) (Auto) 4.7, Monocytes (%) (Auto) 2.6, Eosinophils (%) (Auto) 0.2, Basophils (%) (Auto) 0.2, Neutrophils # (Auto) 23.61, Lymphocytes # (Auto) 1.21, Monocytes # (Auto) 0.68, Eosinophils # (Auto) 0.06, Basophils # (Auto) 0.05 Test 11/01/17 13:55 11/01/17 14:08 11/01/17 14:14 White Blood Count 25.69 K/uL (4.8-10.8) Red Blood Count 4.62 M/uL (4.2-5.4) Hemoglobin 13.8 g/dL (12.0-16.0) Hematocrit 40.7 % (37-47) Mean Corpuscular Volume 88.1 fL (80-100) Mean Corpuscular Hemoglobin 29.9 pg (25-34) Mean Corpuscular Hemoglobin Concent 33.9 g/dl (32-36) Platelet Count 415 K/uL (130-400) Mean Platelet Volume 10.5 fL (7.4-10.4) Neutrophils (%) (Auto) 92.0 % Lymphocytes (%) (Auto) 4.7 % Monocytes (%) (Auto) 2.6 % Eosinophils (%) (Auto) 0.2 % Basophils (%) (Auto) 0.2 % Neutrophils # (Auto) 23.61 K/uL (1.4-6.5) Lymphocytes # (Auto) 1.21 K/uL (1.2-3.4) Monocytes # (Auto) 0.68 K/uL (0.11-0.59) Eosinophils # (Auto) 0.06 K/uL (0-0.5) Basophils # (Auto) 0.05 K/uL (0-0.2) RDW Standard Deviation 45.8 fL (36.4-46.3) RDW Coefficient of Variation 14.1 % (11.5-14.5) Immature Granulocyte % (Auto) 0.3 % Immature Granulocyte # (Auto) 0.08 K/uL (0.00-0.02) Echinocytes 1+ Total Bilirubin 0.7 mg/dl (0.2-1) Direct Bilirubin 0.2 mg/dl (0-0.2) Aspartate Amino Transf (AST/SGOT) 20 U/L (15-37) Alanine Aminotransferase (ALT/SGPT) 13 U/L (12-78) Alkaline Phosphatase 92 U/L (45-117) Total Protein 7.7 gm/dl (6.4-8.2) Albumin 3.9 gm/dl (3.4-5.0) Lipase 34 U/L (73-393) Human Chorionic Gonadotropin, Qual NEG (NEG) Bedside Troponin I < 0.030 ng/ml (0-0.045) Venous Blood pH 7.46 (7.36-7.41) Venous Blood Partial Pressure CO2 32 mmHg (38.0-50.0) Venous Blood Partial Pressure O2 35 mmHg Venous Blood HCO3 22 mmol/L Venous Blood Oxygen Saturation 68.9 % Venous Blood Base Excess -0.8 mEq/L Laboratory studies as stated above per my review. Medications Administered Medications (Trade) Dose Ordered Sig/Mary Anne Route Start Time Stop Time Status Last Admin Dose Admin Sodium Chloride 1,000 ml @ 999 mls/hr Q1H1M STAT IV 11/01/17 14:03 11/01/17 15:03 DC 11/01/17 14:18 999 MLS/HR Ondansetron HCl (Zofran Inj) 4 mg NOW STAT IV 11/01/17 14:03 11/01/17 14:05 DC 11/01/17 14:21 4 MG Insulin Human Regular (novoLIN-R U-100 PER UNIT) 4 units NOW STAT SC 11/01/17 14:13 11/01/17 14:14 DC 11/01/17 14:19 4 UNITS Sodium Chloride 1,000 ml @ 999 mls/hr Q1H1M STAT IV 11/01/17 15:08 11/01/17 16:08 DC 11/01/17 15:08 999 MLS/HR ECG Per My Interpretation Indication: chest pain Rate (beats per minute): 80 Rhythm: sinus with SA Findings: no acute ischemic change, other (normal intervals) Comparison ECG Date: 29-Apr-2017 Change: Sinus arrhythmia now present. ED Course 1358: Past medical records reviewed. The patient was evaluated in room A4B, and a complete history and physical examination were performed. 1403: Zofran Inj 4 mg IV, Sodium Chloride 1000 ml @ 200 mls/hr IV, Sodium Chloride 1000 ml @ 999 mls/hr IV. 1410: I reevaluated the patient. She will be taken off her insulin pump and given insulin. 1413: Insulin Human Regular 4 units SC. 1451: I reevaluated the patient. She is feeling much better. I discussed the results and treatment plan with the patient. She verbalized agreement of the treatment plan. The patient will be evaluated for further management. 1506: I [facility] the [facility]'s [facility] The patient will be evaluated for further management. 1508: Sodium Chloride 1000 ml @ 999 mls/hr IV. 1547: I reevaluated the patient. I updated her on the results. Medical Decision Differentials include, but are not limited to; DKA, ACS, pneumothorax, CHF, electrolyte or metabolic abnormality, PE. This patient comes in as described above she has vomiting and chest pain and high blood sugar. She is a type I diabetic and uses a pump. She changed her site yesterday. Her blood sugar was 380s. I am concerned about DKA. We corrected her blood sugar with regular insulin 4 units subcutaneously and had her disconnect her pump. She was given 1 L IV normal saline bolus while the workup was done and was received a second as well. She does have a CO2 on a blood of 20 and I think is in mild DKA. Her VBG however does not look acidic. Her EKG was unremarkable. Chest x-ray was unremarkable. I did do a chest CT to rule out PE and there is no PE or other acute abnormality and she is feeling significantly better. She does have a significant elevated white count. I reviewed her history and she had a similar presentation in the past which showed a high white count. She is feeling better with 2 L IV fluid and the insulin. Her blood sugar is now in the 200s. Her chest pain seems to be doing better. I do think she should be observed/admitted and have consulted Dr. Carmona to see her in the ER for these measures. Medication Reconcilliation Current Medication List: was personally reviewed by me Blood Pressure Screening Patient's blood pressure: Elevated blood pressure Referred to hospitalist. Consults Time Called: [phone] Consulting Physician: [facility] Returned Call: [phone] Discussed the patient's case. The patient will be evaluated for further management. Impression Primary Impression: DKA (diabetic ketoacidosis) Additional Impression: Chest pain Critical Care I have personally spent greater than 30 minutes of critical care time in the direct management of this patient. This includes bedside care, interpretation of diagnostic studies, and testing, discussion with consultants, patient, and family members, and other required patient management activities. This 30 minutes is in excess of all separately billable procedures. Scribe Attestation The scribe's documentation has been prepared under my direction and personally reviewed by me in its entirety. I confirm that the note above accurately reflects all work, treatment, procedures, and medical decision making performed by me. Departure Information Dispostion Being Evaluated By Hospitalist Referrals Carol Mckenzie D.O. (PCP) Patient Instructions My [facility] Problem Qualifiers
--- NOTE | 2017-11-01 15:29 | DIAGNOSTIC IMAGING REPORT ---
(CHEST FOR PE) ANGIO WITH CLINICAL HISTORY: 22 years-old Female presenting with mid sternal chest pain, clinical concern for pulmonary embolus. TECHNIQUE: Multidetector CT angiography of the chest was performed after administration of intravenous contrast. 3-D volumetric and/or maximum intensity projection (MIP) images were subsequently reconstructed for review. IV contrast: 87 mL of Optiray 320. A dose lowering technique was used consistent with the principles of ALARA (as low as reasonably achievable). COMPARISON: Chest x-ray performed earlier the same day. CT DOSE (mGy.cm): The estimated cumulative dose is 620.09 mGy.cm. FINDINGS: Sas Developer Analyst topogram: Unremarkable. Pulmonary vasculature: The study is adequate for assessment of the pulmonary vascular tree. No filling defect within the pulmonary arteries to suggest embolus. Main pulmonary artery is not enlarged. No flattening of the interventricular septum. No intracardiac filling defect. No reflux of contrast into the hepatic veins. Remaining chest: On soft tissue windows, normal thyroid and thoracic inlet. No axillary, supraclavicular, hilar, or mediastinal lymphadenopathy. Normal aorta. Normal heart size. No pericardial or pleural effusion. Hepatic steatosis. On lung windows, no focal infiltrate or nodule. Airways patent. On bone windows, normal osseous structures. IMPRESSION: 1. No evidence of pulmonary embolus. No acute intrathoracic pathology. 2. Hepatic steatosis. Electronically signed by: Geovanny Hardy M.D. 11/01/2017 3:28 PM Dictated Date/Time: 11/01/2017 3:24 PM
[2017-11-01] MEDS ORDERED: MAGNESIUM HYDROXIDE SUSP 30 ML UDC PO PRN (15:45)
[2017-11-01] MEDS ORDERED: NITROGLYCERIN 0.4 MG SL PER TAB CHARGE SL PRN (15:45)
[2017-11-01] MEDS ORDERED: POLYETHYLENE (MIRALAX) 17 GM PACK PO PRN (15:45)
[2017-11-01] MEDS ORDERED: ACETAMINOPHEN 325 MG TAB PO PRN (15:45)
[2017-11-01] MEDS ORDERED: ONDANSETRON INJ 2 MG/ML 2 ML VIAL IV PRN (15:45)
[2017-11-01] MEDS ORDERED: ALUMINUM/MAGNESIUM/SIMETH (MAALOX MAX) 30 ML UDC PO PRN (15:45)
[2017-11-01] MEDS ORDERED: INSULIN IV INFUSION PROTOCOL STA (15:49)
--- NOTE | 2017-11-01 15:52 | History and Physical ---
History & Physical Date & Time of Service: November 01, 2017 at 15:52 Chief Complaint: Chest Pain Primary Care Physician: Carol Mckenzie D.O. History of Present Illness Source: patient This is a 22-year-old female with medical history of type 1 diabetes his anxiety disorder, depression presented to ER with complaint of sudden onset of left-sided chest pain also had nausea/dry heaving, vomiting Poor appetite In ER pt found to be in DKA with the blood sugar more than 300, positive anion gap Patient given IV insulin Started with insulin drip CT chest with contrast shows no evidence of PE Patient is not hypoxic or tachycardic, adequate oxygenation in room air Denies of any fever chills, no dyspnea on exertion no palpitation or dizzy spell Past Medical/Surgical History Medical Problems: (1) Anxiety (2) Asthma, Unspecified (3) Depression (4) Depression (5) Diabetes mellitus type 1 (6) DKA (diabetic ketoacidoses) (7) DKA, type 1 (8) GERD (gastroesophageal reflux disease) (9) Leukocytosis (10) Rash and nonspecific skin eruption (11) Suicidal ideation Family History Diabetes mellitus FH: cancer FH: gallbladder disease Kidney disease Kidney stones Social History Smoking Status: Current Every Day Smoker Marital Status: single Housing status: lives with friends Occupational Status: student Multi-Drug Resistant Organisms History of MDRO: No Allergies Coded Allergies: Amoxicillin (Verified Allergy, Intermediate, rash, 11/01/17) Clavulanic Acid (Verified Allergy, Intermediate, rash, 11/01/17) Loratadine (Unverified Allergy, Mild, 11/01/17) Red Dye (Verified Allergy, Unknown, `, 11/01/17) Penicillins (Unverified Adverse Reaction, Intermediate, RASH, 11/01/17) Home Medications Scheduled Albuterol Hfa (Ventolin Hfa), 2 PUFFS INH Q4H Insulin Aspart (novoLOG INSULIN PUMP ), 1 EA N/A UD Insulin Aspart (Novolog Penfill), 0 SQ UD Metformin Hcl (Glucophage), 500 MG PO BID Scheduled PRN Ondansetron Hcl (Zofran), 4 MG PO Q8 PRN for Nausea Review of Systems Constitutional: + weakness, + fatigue, + problem reported (Poor appetite) Respiratory: No cough, No sputum, No wheezing, No shortness of breath, No dyspnea on exertion, No dyspnea at rest, No hemoptysis, No problem reported Cardiovascular: + chest pain Abdomen: + nausea, + vomiting Psychiatric: + anxiety Physical Exam Vital Signs Date Time Temp Pulse Resp B/P (MAP) Pulse Ox O2 Delivery O2 Flow Rate FiO2 11/01/17 15:37 100 22 99 11/01/17 15:30 138/87 11/01/17 15:20 136/81 11/01/17 15:00 110/69 11/01/17 14:45 111/80 11/01/17 14:37 107 21 99 11/01/17 14:07 88 27 100 11/01/17 13:55 113/97 11/01/17 13:51 113 11/01/17 13:49 153/108 11/01/17 13:47 Room Air 11/01/17 13:47 36.5 113 26 153/108 99 Room Air General Appearance: no apparent distress Head: normocephalic, atraumatic Eyes: normal inspection, PERRL, EOMI, sclerae normal Neck: thyroid normal, no carotid bruits, trachea midline Respiratory/Chest: lungs clear, normal breath sounds, no respiratory distress Cardiovascular: regular rate, rhythm, no edema Abdomen/GI: normal bowel sounds, non tender, soft Back: no CVA tenderness Extremities/Musculoskelatal: normal inspection, normal capillary refill, no pedal edema Neurologic/Psych: alert, oriented x 3 Skin: normal color, warm/dry, no rash Diagnostics Laboratory Results Results Past 24 Hours Test 11/01/17 13:55 11/01/17 14:08 11/01/17 14:14 11/01/17 15:42 Range/Units White Blood Count 25.69 4.8-10.8 K/uL Red Blood Count 4.62 4.2-5.4 M/uL Hemoglobin 13.8 12.0-16.0 g/dL Hematocrit 40.7 37-47 % Mean Corpuscular Volume 88.1 80-100 fL Mean Corpuscular Hemoglobin 29.9 25-34 pg Mean Corpuscular Hemoglobin Concent 33.9 32-36 g/dl Platelet Count 415 130-400 K/uL Mean Platelet Volume 10.5 7.4-10.4 fL Neutrophils (%) (Auto) 92.0 % Lymphocytes (%) (Auto) 4.7 % Monocytes (%) (Auto) 2.6 % Eosinophils (%) (Auto) 0.2 % Basophils (%) (Auto) 0.2 % Neutrophils # (Auto) 23.61 1.4-6.5 K/uL Lymphocytes # (Auto) 1.21 1.2-3.4 K/uL Monocytes # (Auto) 0.68 0.11-0.59 K/uL Eosinophils # (Auto) 0.06 0-0.5 K/uL Basophils # (Auto) 0.05 0-0.2 K/uL RDW Standard Deviation 45.8 36.4-46.3 fL RDW Coefficient of Variation 14.1 11.5-14.5 % Immature Granulocyte % (Auto) 0.3 % Immature Granulocyte # (Auto) 0.08 0.00-0.02 K/uL Echinocytes 1+ Sodium Level 135 136-145 mmol/L Potassium Level 4.5 3.5-5.1 mmol/L Chloride Level 102 98-107 mmol/L Carbon Dioxide Level 20 21-32 mmol/L Anion Gap 13.0 3-11 mmol/L Blood Urea Nitrogen 12 7-18 mg/dl Creatinine 0.97 0.60-1.20 mg/dl Est Creatinine Clear Calc Drug Dose 96.7 ml/min Estimated GFR () 97.4 Estimated GFR (Non- 84.1 BUN/Creatinine Ratio 12.0 10-20 Random Glucose 384 70-99 mg/dl Calcium Level 9.4 8.5-10.1 mg/dl Total Bilirubin 0.7 0.2-1 mg/dl Direct Bilirubin 0.2 0-0.2 mg/dl Aspartate Amino Transf (AST/SGOT) 20 15-37 U/L Alanine Aminotransferase (ALT/SGPT) 13 12-78 U/L Alkaline Phosphatase 92 45-117 U/L Total Protein 7.7 6.4-8.2 gm/dl Albumin 3.9 3.4-5.0 gm/dl Lipase 34 73-393 U/L Beta-Hydroxybutyric Acid 26.09 0.2-2.81 mg/dL Human Chorionic Gonadotropin, Qual NEG NEG Bedside Troponin I < 0.030 0-0.045 ng/ml Venous Blood pH 7.46 7.36-7.41 Venous Blood Partial Pressure CO2 32 38.0-50.0 mmHg Venous Blood Partial Pressure O2 35 mmHg Venous Blood HCO3 22 mmol/L Venous Blood Oxygen Saturation 68.9 % Venous Blood Base Excess -0.8 mEq/L Microbiology Results 11/01/17 Blood Culture, Ordered Pending 11/01/17 Blood Culture, Ordered Pending Diagnostic Radiology CT chest with IV contrast IMPRESSION: 1. No evidence of pulmonary embolus. No acute intrathoracic pathology. 2. Hepatic steatosis. CXR normal Normal EKG Impression Assessment and Plan TYPE 1 DIABETES ON INSULIN PUMP/DKA Presents with blood sugar 385/elevated anion gap history of type 1 diabetes/on insulin pump Patient reports of using her pump as instructed Insulin pump is discontinued Started with IV insulin infusion Given IV fluids 2 L bolus, followed by normal saline at 1 25 mL/h to correct dehydration/ intravascular volume depletion Ordered for hemoglobin A1c Pharmacy consulted for diabetic management Patient does not have appear to have full insight regarding insulin pump management/dietary restriction and lifestyle should start modification perioperative educator consulted MARKED LEUKOCYTOSIS WBC elevated more than 25K Possible combination of stress induced leukocytosis and/with dehydration No reports of fever chills no urinary symptoms Order for blood and urine culture Follow daily CBC CHEST PAIN: Sharp chest pain developed this morning associated with tenderness on chest wall Pain is worse with taking deep breath CT chest with contrast shows no evidence of PE Possible musculoskeletal No hypoxia/tachycardia/or hemodynamic instability Serial cardiac marker will be checked Monitoring telemetry Echo in a.m. HYPONATREMIA Due to dehydration Continue aggressive IV fluid resuscitation Follow PRP POOR APPETITE/SENSATION OF EARLY SATIETY: Patient reports of constant bloating/poor appetite/skips meal very frequently as "does not feel hungry Concern for possible diabetic gastroparesis Patient is counseled to keep blood sugar level within the range/management of type 1 diabetes Change in lifestyle to incorporate exercise/healthy eating Will benefit with gastric emptying study CODE STATUS: Full code DVT prophylaxis Low risk Ordered for SCD and teds Ambulate DISPOSITION Expected to be discharged home when medically stable Level of Care Telemetry Resuscitation Status FULL RESUSCITATION VTE Prophylaxis Risk Level: Low Given or contraindicated: Warfarin (Coumadin)
[2017-11-01] MEDS ORDERED: DKA GOAL RANGE 150-250 mg/dl 1 EA STA (15:55)
[2017-11-01] MEDS ORDERED: SEVERE STRESS LEVEL STA (15:55)
[2017-11-01] MEDS ORDERED: PHARMACY GLYCEMIC MGMT CONSULT PRN (15:55)
[2017-11-01] MEDS ORDERED: PENDING D5 1/2NS+20mEq KCL IVF SCH ×2 (16:00→20:00)
[2017-11-01] MEDS ORDERED: SEVERE STRESS LEVEL ONE (16:00)
[2017-11-01] MEDS ORDERED: INSULIN IV INFUSION PROTOCOL SCH (16:00)
[2017-11-01] MEDS ORDERED: PENDING NSS+20mEq KCL IVF SCH ×2 (16:00→20:00)
[2017-11-01] MEDS ORDERED: DKA GOAL RANGE 150-250 mg/dl 1 EA ONE (16:00)
[2017-11-01 16:38] VITALS: Ht 160 cm; Wt 98.1 kg
[2017-11-01 16:54] VITALS: O2SAT 95
[2017-11-01 17:25] VITALS: BP 124/74; PULSE 82; TEMP 37.1; O2SAT 98
[2017-11-01] MEDS ORDERED: GLUCOSE 40% GEL 15 GM TUBE PO PRN (17:30)
[2017-11-01] MEDS ORDERED: GLUCOSE 10 TABS/TUBE PO PRN (17:30)
[2017-11-01] MEDS ORDERED: INSULIN ASPART 100 UNITS/ML 3 ML PEN SC SCH (17:30)
[2017-11-01] MEDS ORDERED: CARBOHYDRATES FOR HYPOGLYCEMIA PO PRN (17:30)
[2017-11-01] MEDS ORDERED: GLUCAGON FOR INJ 1 MG VIAL IM PRN (17:30)
[2017-11-01] MEDS ORDERED: DEXTROSE 50% 50 ML SYR IV PRN (17:30)
[2017-11-01 17:32] LABS: CALCIUM 8.4 mg/dl (8.5-10.1); CREATININE 0.74 mg/dl (0.60-1.20); POTASSIUM 4.4 mmol/L (3.5-5.1)
[2017-11-01 17:33] LABS: PHOSPHORUS 2.3 mg/dl (2.5-4.9)
[2017-11-01] MEDS ORDERED: SODIUM CHLORIDE 0.9% 1000ML 1,000 ML IV SCH (17:45)
[2017-11-01] MEDS ORDERED: INSULIN HUMAN REGULAR IV BOLUS 3.5 UNIT in SYRINGE 0 ML IV ONE (18:00)
[2017-11-01] MEDS ORDERED: INSULIN REGULAR 250 UNITS in SODIUM CHLORIDE 0.9% 250ML 250 ML IV SCH (18:03)
[2017-11-01] MEDS ORDERED: D5W AND 1/2NSS 1,000 ML IV SCH (18:10)
--- NOTE | 2017-11-01 18:50 | Pharmacy Progress Note ---
Glycemic Control Intl Consult Date of Service November 01, 2017. Scope Glycemic Pharmacist consulted by Dr Carmona on 11/01/17 for glycemic control and to write orders per [facility] inpatient glycemic control protocol Objective Weight (Kilograms): 87.000 Accuchecks BSG (last 24hrs): Test 11/01/17 13:55 11/01/17 14:07 11/01/17 14:43 11/01/17 15:48 Random Glucose 384 mg/dl (70-99) Bedside Glucose 344 mg/dl (70-90) 337 mg/dl (70-90) 263 mg/dl (70-90) Test 11/01/17 16:43 11/01/17 17:00 11/01/17 17:18 Bedside Glucose 249 mg/dl (70-90) 201 mg/dl (70-90) Random Glucose 251 mg/dl (70-99) Laboratory Data (last 24hrs) Test 11/01/17 13:55 11/01/17 17:00 Anion Gap 13.0 mmol/L 9.0 mmol/L BUN/Creatinine Ratio 12.0 16.1 Blood Urea Nitrogen 12 mg/dl 12 mg/dl Creatinine 0.97 mg/dl 0.74 mg/dl Potassium Level 4.5 mmol/L 4.4 mmol/L Sodium Level 135 mmol/L 136 mmol/L White Blood Count 25.69 K/uL Red Blood Count 4.62 M/uL Hemoglobin 13.8 g/dL Hematocrit 40.7 % Mean Corpuscular Volume 88.1 fL Mean Corpuscular Hemoglobin 29.9 pg Mean Corpuscular Hemoglobin Concent 33.9 g/dl Platelet Count 415 K/uL Mean Platelet Volume 10.5 fL Neutrophils (%) (Auto) 92.0 % Lymphocytes (%) (Auto) 4.7 % Monocytes (%) (Auto) 2.6 % Eosinophils (%) (Auto) 0.2 % Basophils (%) (Auto) 0.2 % Neutrophils # (Auto) 23.61 K/uL Lymphocytes # (Auto) 1.21 K/uL Monocytes # (Auto) 0.68 K/uL Eosinophils # (Auto) 0.06 K/uL Basophils # (Auto) 0.05 K/uL HbA1c Test 11/01/17 13:55 Recent Pertinent Medications Outpatient Anti-diabetic Regimen: * Novolog pump, Metformin, Novolog bolus * A1c = 8.7 % 04/28/17 Assessment & Plan ASSESSMENT: Ms. Morgan is a pleasant 22yo F p/w DKA and profound Na/K/H20 loss. At this juncture she is positive for ketosis, elevated AG, low CO2 and bicarb. RR WNL. She received an appropriate NSS bolus in the ED. Appropriate IVFs are ordered. Ensuing BSGs trended nicely from 384 ->201 after NSS bolus & 4u SC insulin given in ED. I spoke with Ms. Morgan personally to discuss her pump settings. She endorses a basal rate of 2.8u/hr, CR of 5units per 1g carbs consumed, and a CF factor of 15. Further, she utilizes a novolog pen when her pump runs out of insulin. PLAN FOR INPATIENT GLYCEMIC CONTROL: * Starting IV insulin infusion per severe stress protocol * Goal Range 150 - 250 mg/dl * In the critical care setting, continuous IV insulin infusion has been shown to be the best method for achieving glycemic targets. * Please note that the plan above was derived based on current level of insulin resistance and hospital stress. These recommendations are appropriate for inpatient admission only. Plan of care upon discharge will need to be reassessed to avoid potential outpatient hypo/hyperglycemia. Thank you.
[2017-11-01] MEDS: D5W AND 1/2NSS + 20MEQ KCL 1,000 ML IV SCH (19:41)
[2017-11-01 19:50] VITALS: BP 107/66; PULSE 76; TEMP 37.4; O2SAT 99
[2017-11-01] MEDS: INSULIN ASPART 100 UNITS/ML 3 ML PEN SC SCH (21:32)
[2017-11-01 21:53] LABS: BLOOD UREA NITROGEN 12 mg/dl (7-18); CALCIUM 8.3 mg/dl (8.5-10.1); CARBON DIOXIDE 25 mmol/L (21-32); CREATININE 0.78 mg/dl (0.60-1.20); GLUCOSE 209 mg/dl (70-99); SODIUM 136 mmol/L (136-145)
[2017-11-01 22:02] LABS: PHOSPHORUS 3.2 mg/dl (2.5-4.9)
[2017-11-01] MEDS: MAGNESIUM SULFATE 1GM / D5W 100 ML IV SCH ×2 (22:35→23:30)
[2017-11-01 23:43] VITALS: BP 121/66; PULSE 87; TEMP 37; O2SAT 99
[2017-11-02 00:39] LABS: CALCIUM 8.6 mg/dl (8.5-10.1); CREATININE 0.96 mg/dl (0.60-1.20); PHOSPHORUS 3.6 mg/dl (2.5-4.9); POTASSIUM 3.7 mmol/L (3.5-5.1)
[2017-11-02 03:17] VITALS: BP 97/53; PULSE 71; TEMP 36.6; O2SAT 99
[2017-11-02 04:18] LABS: BLOOD UREA NITROGEN 9 mg/dl (7-18); CALCIUM 8.5 mg/dl (8.5-10.1); CARBON DIOXIDE 30 mmol/L (21-32); GLUCOSE 152 mg/dl (70-99); PHOSPHORUS 3.7 mg/dl (2.5-4.9); POTASSIUM 4.3 mmol/L (3.5-5.1); SODIUM 137 mmol/L (136-145)
[2017-11-02] MEDS: D5W AND 1/2NSS + 20MEQ KCL 1,000 ML IV SCH ×3 (05:15→16:38)
[2017-11-02 06:24] VITALS: BP 102/66; PULSE 73; TEMP 36.9; O2SAT 100
[2017-11-02 07:35] LABS: BASO % 0.2 %; BASO ABS # 0.02 K/uL (0-0.2); EOS % 1.1 %; EOS ABS # 0.13 K/uL (0-0.5); HEMATOCRIT 35.8 % (37-47); IG# 0.03 K/uL (0.00-0.02); LYMPH ABS # 2.36 K/uL (1.2-3.4); MEAN CELL VOLUME 88.2 fL (80-100); MEAN CORPUSCULAR HEMOGLOBIN 29.6 pg (25-34); MEAN CORPUSCULAR HGB CONC 33.5 g/dl (32-36); MEAN PLATELET VOLUME 9.6 fL (7.4-10.4); MONO % 6.2 %; MONO ABS # 0.73 K/uL (0.11-0.59); NEUT % 72.2 %; NEUT ABS # 8.54 K/uL (1.4-6.5); PLATELET COUNT 311 K/uL (130-400); RED CELL DISTRIBUTION WIDTH CV 14.1 % (11.5-14.5); RED CELL DISTRIBUTION WIDTH SD 45.7 fL (36.4-46.3); WHITE BLOOD COUNT 11.81 K/uL (4.8-10.8)
[2017-11-02] MEDS: INSULIN ASPART 100 UNITS/ML 3 ML PEN SC SCH (08:00)
[2017-11-02] MEDS ORDERED: ASPIRIN 81 MG ECTAB PO SCH (09:00)
[2017-11-02 10:30] LABS: BLOOD UREA NITROGEN 7 mg/dl (7-18); CALCIUM 8.2 mg/dl (8.5-10.1); CARBON DIOXIDE 25 mmol/L (21-32); CREATININE 0.69 mg/dl (0.60-1.20); GLUCOSE 239 mg/dl (70-99); POTASSIUM 4.2 mmol/L (3.5-5.1); SODIUM 137 mmol/L (136-145)
[2017-11-02 10:38] LABS: PHOSPHORUS 2.8 mg/dl (2.5-4.9)
[2017-11-02] MEDS ORDERED: INSULIN ASPART 100 UNITS/ML VIAL SC PRN (11:15)
--- NOTE | 2017-11-02 11:29 | Pharmacy Progress Note ---
Glycemic Control Progress Note Date of Service November 02, 2017. Scope Glycemic Pharmacist consulted for glycemic control to write orders per [facility] inpatient glycemic control protocol. Objective Accuchecks BSG (last 24hrs): Test 11/01/17 13:55 11/01/17 14:07 11/01/17 14:43 11/01/17 15:48 Random Glucose 384 mg/dl (70-99) Bedside Glucose 344 mg/dl (70-90) 337 mg/dl (70-90) 263 mg/dl (70-90) Test 11/01/17 16:43 11/01/17 17:00 11/01/17 17:18 11/01/17 19:14 Bedside Glucose 249 mg/dl (70-90) 201 mg/dl (70-90) 182 mg/dl (70-90) Random Glucose 251 mg/dl (70-99) Test 11/01/17 20:14 11/01/17 21:16 11/01/17 21:25 11/01/17 23:14 Bedside Glucose 195 mg/dl (70-90) 203 mg/dl (70-90) 179 mg/dl (70-90) Random Glucose 209 mg/dl (70-99) Test 11/01/17 23:59 11/02/17 01:22 11/02/17 01:50 11/02/17 02:10 Random Glucose 142 mg/dl (70-99) Bedside Glucose 115 mg/dl (70-90) 119 mg/dl (70-90) 134 mg/dl (70-90) Test 11/02/17 02:27 11/02/17 03:14 11/02/17 03:24 11/02/17 04:19 Bedside Glucose 153 mg/dl (70-90) 128 mg/dl (70-90) 141 mg/dl (70-90) Random Glucose 152 mg/dl (70-99) Test 11/02/17 05:13 11/02/17 06:20 11/02/17 07:14 11/02/17 08:16 Bedside Glucose 122 mg/dl (70-90) 142 mg/dl (70-90) 165 mg/dl (70-90) 181 mg/dl (70-90) Test 11/02/17 09:49 11/02/17 10:17 Random Glucose 239 mg/dl (70-99) Bedside Glucose 258 mg/dl (70-90) Recent Pertinent Medications The patient is currently receiving: * IV insulin infusion - severe stress * Goal range 150-250mg/dl * Rate currently at 1.6units/hr Outpatient Anti-Diabetic Meds Novolog insulin pump Carb ratio 1 unit per 5 grams CHO CF: 15mg/dl/unit Assessment & Plan ASSESSMENT: * See progress note from 11/01/ for more background info, in short: * Pt receiving SQ basal bolus insulin regimen for hyperglycemia secondary to baseline DM (outpatient insulin pump on hold), admitted for DKA * Patient is currently receiving insulin IV infusion at 1.6units/hr * Anion gap has closed, labs WNL * Changes needed to insulin regimen: * Transition patient back to home insulin pump * Tighten goal range of insulin drip * Additional notes / comments: * Patient has all of her supplies to run her insulin pump and is competent to use inpatient * Patient's appetite has been down and patient did not eat any breakfast this morning * IVFs continue D51/2NS+20kcl @125cc/hr PLAN FOR INPATIENT GLYCEMIC CONTROL: * IV insulin infusion per severe stress protocol - Discontinue at 1700 today * CHANGE: Goal Range 120 - 200 mg/dl * Begin patient's own NovoLog insulin pump - ACHS and at 0200 tonight * Goal Range: per home insulin pump * Correction Factor: 15 mg/dL/unit * Nutritional / Prandial insulin per carb ratio of 1 unit per 5 grams CHO consumed * Please note that the plan above was derived based on current level of insulin resistance and hospital stress. These recommendations are appropriate for inpatient admission only. Plan of care upon discharge will need to be reassessed to avoid potential outpatient hypo/hyperglycemia. Thank you.
[2017-11-02] MEDS ORDERED: NovoLOG INSULIN PUMP SCH (11:30)
--- NOTE | 2017-11-02 11:35 | ECHOCARDIOGRAM REPORT ---
*NOTICE TO RECEIVING [employer] AGENCY This information is strictly Confidential and protected under [place] law. [place] law prohibits you from making any further disclosure of this information unless further disclosure is expressly permitted by the written consent of the person to whom it pertains or is authorized by law. A general authorization for the release of medical or other information is not sufficient for this purpose. Hospital accepts no responsibility if the information is made available to any other person, INCLUDING THE PATIENT. Interpretation Summary * Name: DIONNE YANG Study Date: 11/02/2017 07:10 AM BP: 97/53 mmHg * Patient Location: S235 HR: 80 * : 1995 (M/d/yyyy) Gender: Female Height: 63 in * Age: 22 yrs Ethnicity: CA Weight: 191 lb * Ordering Physician: Nicol Carmona * Referring Physician: Self, Referred * Performed By: Angle Martinez RCS * * Reason For Study: CHEST PAIN * BSA: 1.9 m2 * -- Conclusions -- * The study was technically limited. There are poor apical windows * The left ventricle is normal in size. * There is borderline concentric left ventricular hypertrophy. * Left ventricular systolic function is normal. * The left ventricular wall motion is normal. * Ejection Fraction = 65-70%. * There is no significant valvular disease * There is no pericardial effusion. Procedure Details * A complete two-dimensional transthoracic echocardiogram was performed (2D, M-mode, Doppler and color flow Doppler). Left Ventricle * The left ventricle is normal in size. * There is borderline concentric left ventricular hypertrophy. * Left ventricular systolic function is normal. * Ejection Fraction = 65-70%. * The left ventricular wall motion is normal. Right Ventricle * The right ventricle is grossly normal size. Atria * The left atrial size is normal. * Right atrial size is normal. * No ASD detected; PFO is not assessed. Mitral Valve * The mitral valve anatomy is normal. * There is no mitral valve stenosis. * There is trace mitral regurgitation. Tricuspid Valve * The tricuspid valve is not well visualized, but is grossly normal. * There is no tricuspid stenosis. * There is trace tricuspid regurgitation. Aortic Valve * The aortic valve is trileaflet. * No hemodynamically significant valvular aortic stenosis. * No aortic regurgitation is present. Pulmonic Valve * The pulmonic valve is not well visualized. Great Vessels * The aortic root is normal size. Pericardium/Pleural * There is no pericardial effusion. Great Vessels * Normal inferior vena cava diameter and respiratory variation suggests normal central venous pressure. MMode 2D Measurements and Calculations IVSd 1.3 cm IVSs 1.7 cm LVIDd 3.7 cm LVIDs 2.9 cm LVPWd 1.3 cm LVPWs 1.2 cm IVS/LVPW 1.1 FS 23.5 % EDV(Teich) 59.2 ml ESV(Teich) 30.9 ml EF(Teich) 47.8 % EDV(cubed) 51.8 ml ESV(cubed) 23.2 ml EF(cubed) 55.2 % % IVS thick 29.9 % % LVPW thick -1.34 % LV mass(C)d 166.6 grams LV mass(C)dI 87.9 grams/m\S\2 LV mass(C)s 144.8 grams LV mass(C)sI 76.4 grams/m\S\2 SV(Teich) 28.3 ml SI(Teich) 14.9 ml/m\S\2 SV(cubed) 28.6 ml SI(cubed) 15.1 ml/m\S\2 Ao root diam 2.2 cm Ao root area 3.8 cm\S\2 LA dimension 2.7 cm LA/Ao 1.2 LVOT diam 2.0 cm LVOT area 3.1 cm\S\2 LVAd ap4 19.8 cm\S\2 LVLd ap4 6.6 cm EDV(MOD-sp4) 49.4 ml EDV(sp4-el) 50.3 ml LVAs ap4 10.7 cm\S\2 LVLs ap4 5.6 cm ESV(MOD-sp4) 17.6 ml ESV(sp4-el) 17.3 ml EF(MOD-sp4) 64.4 % EF(sp4-el) 65.7 % LVAd ap2 30.0 cm\S\2 LVLd ap2 7.4 cm EDV(MOD-sp2) 100.3 ml EDV(sp2-el) 103.9 ml LVAs ap2 19.0 cm\S\2 LVLs ap2 6.5 cm ESV(MOD-sp2) 45.7 ml ESV(sp2-el) 47.4 ml EF(MOD-sp2) 54.4 % EF(sp2-el) 54.3 % LVLd %diff 10.0 % EDV(MOD-bp) 72.9 ml LVLs %diff 13.4 % ESV(MOD-bp) 30.1 ml EF(MOD-bp) 58.7 % SV(MOD-sp4) 31.8 ml SI(MOD-sp4) 16.8 ml/m\S\2 SV(MOD-sp2) 54.6 ml SI(MOD-sp2) 28.8 ml/m\S\2 SV(MOD-bp) 42.7 ml SI(MOD-bp) 22.5 ml/m\S\2 SV(sp4-el) 33.0 ml SI(sp4-el) 17.4 ml/m\S\2 SV(sp2-el) 56.4 ml SI(sp2-el) 29.8 ml/m\S\2 Doppler Measurements and Calculations MV E max rodrigo 149.9 cm/sec MV A max rodrigo 68.5 cm/sec MV E/A 2.2 MV P1/2t max rodrigo 141.2 cm/sec MV P1/2t 70.9 msec MVA(P1/2t) 3.1 cm\S\2 MV dec slope 582.8 cm/sec\S\2 MV dec time 0.19 sec Ao V2 max 102.2 cm/sec Ao max PG 4.2 mmHg Ao max PG (full) -0.19 mmHg JANUSZ(V,A) 3.2 cm\S\2 JANUSZ(V,D) 3.2 cm\S\2 LV V1 max PG 4.4 mmHg LV V1 max 104.6 cm/sec PA V2 max 117.4 cm/sec PA max PG 5.5 mmHg TR max rodrigo 215.3 cm/sec
[2017-11-02 11:39] VITALS: BP 120/72; PULSE 79; TEMP 36.7; O2SAT 98
[2017-11-02 12:50] LABS: CALCIUM 8.2 mg/dl (8.5-10.1); CREATININE 0.69 mg/dl (0.60-1.20)
[2017-11-02 12:54] LABS: PHOSPHORUS 1.9 mg/dl (2.5-4.9)
[2017-11-02] MEDS ORDERED: SODIUM PHOSPHATE 3 MMOL/1 ML INFUSION IV STA (15:31)
--- NOTE | 2017-11-02 15:33 | Progress Note ---
Internal Med Progress Note Date of Service: November 02, 2017. Provider Documentation: SUBJECTIVE: The patient was seen and examined in telemetry unit She has insulin-dependent diabetes on his insulin pump at home and has been noncompliant She was admitted with chest pain, high sugar high ketones Started with intravenous insulin Has been feeling a lot better today and wants to go home OBJECTIVE: Vital Signs-as noted below Exam: General-no apparent distress Eyes-normal ENT-normal Neck-supple Lungs-clear to auscultate bilaterally Heart-regular, no murmur Abdomen-benign, nontender, no organomegaly Extremities-no edema Neuro-alert, awake and oriented 3 No focal neuro deficit Lab data as noted below. ASSESSMENT & PLAN: DKA TYPE 1 DIABETES ON INSULIN PUMP/DKA Presents with blood sugar 385/elevated anion gap and high B-hydroxybutyrate Has Type 1 diabetes/on insulin pump Patient reports of using her pump as instructed Insulin pump is discontinued Started with IV insulin infusion and IV fluid Pharmacy consulted for diabetic management-appreciate input Patient does not have appear to have full insight regarding insulin pump management/dietary restriction and lifestyle should start modification ict educator consulted Check HbA1c Clincally better and wants to leave the hospital Discussed with the Pharmacy-if tolerating diet ,can be discharged MARKED LEUKOCYTOSIS WBC elevated more than 25K Possible combination of stress induced leukocytosis and/with dehydration No reports of fever chills no urinary symptoms Order for blood and urine culture Follow daily CBC-back to normal Doubt any infection CHEST PAIN: Sharp chest pain developed this morning associated with tenderness on chest wall Pain is worse with taking deep breath CT chest with contrast shows no evidence of PE Possible musculoskeletal ECHO:: * The study was technically limited. There are poor apical windows * The left ventricle is normal in size. * There is borderline concentric left ventricular hypertrophy. * Left ventricular systolic function is normal. * The left ventricular wall motion is normal. * Ejection Fraction = 65-70%. * There is no significant valvular disease * There is no pericardial effusion. No more chest pain HYPONATREMIA/Hypophosphatemia Due to dehydration and Hyperglycemia Continue aggressive IV fluid resuscitation Follow PRP-corrected Replace Phosphate POOR APPETITE/SENSATION OF EARLY SATIETY: Patient reports of constant bloating/poor appetite/skips meal very frequently as "does not feel hungry Concern for possible diabetic gastroparesis Patient is counseled to keep blood sugar level within the range/management of type 1 diabetes Change in lifestyle to incorporate exercise/healthy eating Will benefit with gastric emptying study Advance diet as tolerated Likely discharge this evening CODE STATUS: Full code DVT prophylaxis Low risk Ordered for SCD and teds Ambulate DISPOSITION Expected to be discharged home this Evening Vital Signs: Date Time Temp Pulse Resp B/P (MAP) Pulse Ox O2 Delivery O2 Flow Rate FiO2 11/02/17 12:00 Room Air 11/02/17 11:39 36.7 79 18 120/72 (88) 98 Room Air 11/02/17 08:00 Room Air 11/02/17 06:24 36.9 73 20 102/66 (78) 100 Room Air 11/02/17 04:00 Room Air 11/02/17 03:17 36.6 71 20 97/53 (68) 99 Room Air 11/02/17 00:00 Room Air 11/01/17 23:43 37.0 87 20 121/66 (84) 99 Room Air 11/01/17 20:00 Room Air 11/01/17 19:50 37.4 76 20 107/66 (80) 99 Room Air 11/01/17 17:25 37.1 82 20 124/74 (91) 98 Room Air 11/01/17 16:54 36.5 96 27 119/71 95 11/01/17 16:42 96 27 99 11/01/17 16:38 Room Air 11/01/17 16:30 119/71 11/01/17 16:12 92 18 98 11/01/17 16:00 117/69 11/01/17 15:42 94 21 11/01/17 15:37 100 22 99 11/01/17 15:30 138/87 11/01/17 15:20 136/81 Lab Results: Results Past 24 Hours Test 11/01/17 15:48 11/01/17 16:43 11/01/17 17:00 11/01/17 17:18 Range/Units Bedside Glucose 263 249 201 70-90 mg/dl Venous Blood pH 7.36 7.36-7.41 Sodium Level 136 136-145 mmol/L Potassium Level 4.4 3.5-5.1 mmol/L Chloride Level 107 98-107 mmol/L Carbon Dioxide Level 20 21-32 mmol/L Anion Gap 9.0 3-11 mmol/L Blood Urea Nitrogen 12 7-18 mg/dl Creatinine 0.74 0.60-1.20 mg/dl Est Creatinine Clear Calc Drug Dose 126.8 ml/min Estimated GFR () 135.2 Estimated GFR (Non- 116.6 BUN/Creatinine Ratio 16.1 10-20 Random Glucose 251 70-99 mg/dl Lactic Acid Level 1.1 0.4-2.0 mmol/L Calcium Level 8.4 8.5-10.1 mg/dl Phosphorus Level 2.3 2.5-4.9 mg/dl Magnesium Level 1.6 1.8-2.4 mg/dl Beta-Hydroxybutyric Acid 31.84 0.2-2.81 mg/dL Test 11/01/17 19:14 11/01/17 20:14 11/01/17 21:16 11/01/17 21:24 Range/Units Bedside Glucose 182 195 203 70-90 mg/dl Venous Blood pH 7.40 7.36-7.41 Test 11/01/17 21:25 11/01/17 23:14 11/01/17 23:59 11/02/17 01:22 Range/Units Sodium Level 136 137 136-145 mmol/L Potassium Level 4.0 3.7 3.5-5.1 mmol/L Chloride Level 104 107 98-107 mmol/L Carbon Dioxide Level 25 26 21-32 mmol/L Anion Gap 7.0 4.0 3-11 mmol/L Blood Urea Nitrogen 12 10 7-18 mg/dl Creatinine 0.78 0.96 0.60-1.20 mg/dl Est Creatinine Clear Calc Drug Dose 120.3 97.7 ml/min Estimated GFR () 126.8 98.7 Estimated GFR (Non- 109.4 85.1 BUN/Creatinine Ratio 15.0 10.8 10-20 Random Glucose 209 142 70-99 mg/dl Calcium Level 8.3 8.6 8.5-10.1 mg/dl Phosphorus Level 3.2 3.6 2.5-4.9 mg/dl Magnesium Level 1.5 2.4 1.8-2.4 mg/dl Troponin I < 0.015 0-0.045 ng/ml Bedside Glucose 179 115 70-90 mg/dl Test 11/02/17 01:50 11/02/17 02:10 11/02/17 02:27 11/02/17 03:14 Range/Units Bedside Glucose 119 134 153 128 70-90 mg/dl Test 11/02/17 03:24 11/02/17 04:19 11/02/17 05:13 11/02/17 06:20 Range/Units Sodium Level 137 136-145 mmol/L Potassium Level 4.3 3.5-5.1 mmol/L Chloride Level 107 98-107 mmol/L Carbon Dioxide Level 30 21-32 mmol/L Anion Gap 0.0 3-11 mmol/L Blood Urea Nitrogen 9 7-18 mg/dl Creatinine 0.80 0.60-1.20 mg/dl Est Creatinine Clear Calc Drug Dose 117.3 ml/min Estimated GFR () 123.0 Estimated GFR (Non- 106.1 BUN/Creatinine Ratio 11.1 10-20 Random Glucose 152 70-99 mg/dl Calcium Level 8.5 8.5-10.1 mg/dl Phosphorus Level 3.7 2.5-4.9 mg/dl Magnesium Level 2.3 1.8-2.4 mg/dl Troponin I < 0.015 0-0.045 ng/ml Bedside Glucose 141 122 142 70-90 mg/dl Test 11/02/17 07:14 11/02/17 07:25 11/02/17 08:16 11/02/17 09:49 Range/Units Bedside Glucose 165 181 70-90 mg/dl White Blood Count 11.81 4.8-10.8 K/uL Red Blood Count 4.06 4.2-5.4 M/uL Hemoglobin 12.0 12.0-16.0 g/dL Hematocrit 35.8 37-47 % Mean Corpuscular Volume 88.2 80-100 fL Mean Corpuscular Hemoglobin 29.6 25-34 pg Mean Corpuscular Hemoglobin Concent 33.5 32-36 g/dl Platelet Count 311 130-400 K/uL Mean Platelet Volume 9.6 7.4-10.4 fL Neutrophils (%) (Auto) 72.2 % Lymphocytes (%) (Auto) 20.0 % Monocytes (%) (Auto) 6.2 % Eosinophils (%) (Auto) 1.1 % Basophils (%) (Auto) 0.2 % Neutrophils # (Auto) 8.54 1.4-6.5 K/uL Lymphocytes # (Auto) 2.36 1.2-3.4 K/uL Monocytes # (Auto) 0.73 0.11-0.59 K/uL Eosinophils # (Auto) 0.13 0-0.5 K/uL Basophils # (Auto) 0.02 0-0.2 K/uL RDW Standard Deviation 45.7 36.4-46.3 fL RDW Coefficient of Variation 14.1 11.5-14.5 % Immature Granulocyte % (Auto) 0.3 % Immature Granulocyte # (Auto) 0.03 0.00-0.02 K/uL Sodium Level 137 136-145 mmol/L Potassium Level 4.2 3.5-5.1 mmol/L Chloride Level 104 98-107 mmol/L Carbon Dioxide Level 25 21-32 mmol/L Anion Gap 8.0 3-11 mmol/L Blood Urea Nitrogen 7 7-18 mg/dl Creatinine 0.69 0.60-1.20 mg/dl Est Creatinine Clear Calc Drug Dose 145.1 ml/min Estimated GFR () 145.2 Estimated GFR (Non- 125.3 BUN/Creatinine Ratio 9.5 10-20 Random Glucose 239 70-99 mg/dl Calcium Level 8.2 8.5-10.1 mg/dl Phosphorus Level 2.8 2.5-4.9 mg/dl Magnesium Level 1.8 1.8-2.4 mg/dl Troponin I < 0.015 0-0.045 ng/ml Test 11/02/17 10:17 11/02/17 11:21 11/02/17 11:58 11/02/17 12:15 Range/Units Bedside Glucose 258 254 226 70-90 mg/dl Sodium Level 138 136-145 mmol/L Potassium Level 4.0 3.5-5.1 mmol/L Chloride Level 105 98-107 mmol/L Carbon Dioxide Level 26 21-32 mmol/L Anion Gap 7.0 3-11 mmol/L Blood Urea Nitrogen 6 7-18 mg/dl Creatinine 0.69 0.60-1.20 mg/dl Est Creatinine Clear Calc Drug Dose 145.1 ml/min Estimated GFR () 145.2 Estimated GFR (Non- 125.3 BUN/Creatinine Ratio 8.4 10-20 Random Glucose 257 70-99 mg/dl Calcium Level 8.2 8.5-10.1 mg/dl Phosphorus Level 1.9 2.5-4.9 mg/dl Magnesium Level 1.8 1.8-2.4 mg/dl Test 11/02/17 13:32 11/02/17 14:30 Range/Units Bedside Glucose 164 136 70-90 mg/dl Microbiology Results 11/01/17 Blood Culture, Received Pending 11/01/17 Blood Culture, Received Pending
[2017-11-02 15:40] VITALS: BP 130/76; PULSE 79; TEMP 36.8; O2SAT 99
--- NOTE | 2017-11-02 15:50 | Discharge Instructions ---
Discharge Instructions Date of Service November 02, 2017. Admission Reason for Admission: Dka, Dka Type 1 , Leukocytosis Discharge Discharge Diagnosis / Problem: Hyperglycemia,Possible DKA-resolved Discharge Goals Goal(s): Prevent Disease Progression Activity Recommendations Activity Limitations: resume your previous activity . Instructions / Follow-Up Instructions / Follow-Up Dr Mckenzie on 11/06/17 at 10:15 AM.Please make an early appointment with your Family Educator for better control of your Diabetes. Current Hospital Diet Patient's current hospital diet: Diabetes Type 1 Diet Discharge Diet Recommended Diet: Diabetes Type 1 Diet Pending Studies Studies pending at discharge: no Laboratory Results Hemoglobin A1c Test 11/01/17 13:55 Range/Units Medical Emergencies . Who to Call and When: Medical Emergencies: If at any time you feel your situation is an emergency, please call 911 immediately. . Non-Emergent Contact Non-Emergency issues call your: Primary Care Provider . Past History Medical & Surgical History: (1) DKA (diabetic ketoacidosis) (2) Asthma, Unspecified (3) Anxiety (4) Depression (5) Chest pain . "Provider Documentation" section prepared by Roberto Rodriguez. .
[2017-11-02] MEDS ORDERED: SODIUM PHOSPHATE INJ 21 MMOL in SODIUM CHLORIDE 0.9% 500ML 500 ML IV ONE (16:00)
--- NOTE | 2017-11-02 16:08 | Discharge Summary ---
Discharge Summary Date of Service November 02, 2017. Discharge Summary Admission Date: November 01, 2017 at 15:36 Discharge Date: November 02, 2017 Discharge Disposition: Home Principal Diagnosis: Hyperglycemia,DKA-resolved Secondary Diagnoses/Problems: Please see H&P and Hospital Progress note Medication Reconciliation Continued Medications: Albuterol Hfa (Ventolin Hfa) 200 Puffs/68952 Mcg Aers 2 PUFFS INH Q4H, #1 INHALER Insulin Aspart (novoLOG INSULIN PUMP ) 1 Ea Inj 1 EA N/A UD, EA Inject up to 300 units every other day via insulin pump. Insulin Aspart (Novolog Penfill) 100 Unit/Ml Inj 0 SQ UD TO USE IF INSULIN PUMP RUNS OUT Metformin Hcl (Glucophage) 500 Mg Tab 500 MG PO BID, TAB Ondansetron Hcl (Zofran) 4 Mg Tab 4 MG PO Q8 PRN for Nausea, TAB Admission Information HPI (per Admitting provider): This is a 22-year-old female with medical history of type 1 diabetes his anxiety disorder, depression presented to ER with complaint of sudden onset of left-sided chest pain also had nausea/dry heaving, vomiting Poor appetite In ER pt found to be in DKA with the blood sugar more than 300, positive anion gap Patient given IV insulin Started with insulin drip CT chest with contrast shows no evidence of PE Patient is not hypoxic or tachycardic, adequate oxygenation in room air Denies of any fever chills, no dyspnea on exertion no palpitation or dizzy spell Past Medical/Surgical History Medical Problems: (1) Anxiety (2) Asthma, Unspecified (3) Depression (4) Depression (5) Diabetes mellitus type 1 (6) DKA (diabetic ketoacidoses) (7) DKA, type 1 (8) GERD (gastroesophageal reflux disease) (9) Leukocytosis (10) Rash and nonspecific skin eruption (11) Suicidal ideation Family History Diabetes mellitus FH: cancer FH: gallbladder disease Kidney disease Kidney stones Social History Smoking Status: Current Every Day Smoker Marital Status: single Housing status: lives with friends Occupational Status: student Multi-Drug Resistant Organisms History of MDRO: No Allergies Coded Allergies: Amoxicillin (Verified Allergy, Intermediate, rash, 11/01/17) Clavulanic Acid (Verified Allergy, Intermediate, rash, 11/01/17) Loratadine (Unverified Allergy, Mild, 11/01/17) Red Dye (Verified Allergy, Unknown, `, 11/01/17) Penicillins (Unverified Adverse Reaction, Intermediate, RASH, 11/01/17) Home Medications Scheduled Albuterol Hfa (Ventolin Hfa), 2 PUFFS INH Q4H Insulin Aspart (novoLOG INSULIN PUMP ), 1 EA N/A UD Insulin Aspart (Novolog Penfill), 0 SQ UD Metformin Hcl (Glucophage), 500 MG PO BID Scheduled PRN Ondansetron Hcl (Zofran), 4 MG PO Q8 PRN for Nausea Review of Systems Constitutional: + weakness, + fatigue, + problem reported (Poor appetite) Respiratory: No cough, No sputum, No wheezing, No shortness of breath, No dyspnea on exertion, No dyspnea at rest, No hemoptysis, No problem reported Cardiovascular: + chest pain Abdomen: + nausea, + vomiting Psychiatric: + anxiety Physical Ex - H&P Physical Exam Vital Signs Date Time Temp Pulse Resp B/P (MAP) Pulse Ox O2 Delivery O2 Flow Rate FiO2 11/01/17 15:37 100 22 99 11/01/17 15:30 138/87 11/01/17 15:20 136/81 11/01/17 15:00 110/69 11/01/17 14:45 111/80 11/01/17 14:37 107 21 99 11/01/17 14:07 88 27 100 11/01/17 13:55 113/97 11/01/17 13:51 113 11/01/17 13:49 153/108 11/01/17 13:47 Room Air 11/01/17 13:47 36.5 113 26 153/108 99 Room Air General Appearance: no apparent distress Head: normocephalic, atraumatic Eyes: normal inspection, PERRL, EOMI, sclerae normal Neck: thyroid normal, no carotid bruits, trachea midline Respiratory/Chest: lungs clear, normal breath sounds, no respiratory distress Cardiovascular: regular rate, rhythm, no edema Abdomen/GI: normal bowel sounds, non tender, soft Back: no CVA tenderness Extremities/Musculoskelatal: normal inspection, normal capillary refill, no pedal edema Neurologic/Psych: alert, oriented x 3 Skin: normal color, warm/dry, no rash Diagnostics - H&P Diagnostics Laboratory Results Results Past 24 Hours Test 11/01/17 13:55 11/01/17 14:08 11/01/17 14:14 11/01/17 15:42 Range/Units White Blood Count 25.69 4.8-10.8 K/uL Red Blood Count 4.62 4.2-5.4 M/uL Hemoglobin 13.8 12.0-16.0 g/dL Hematocrit 40.7 37-47 % Mean Corpuscular Volume 88.1 80-100 fL Mean Corpuscular Hemoglobin 29.9 25-34 pg Mean Corpuscular Hemoglobin Concent 33.9 32-36 g/dl Platelet Count 415 130-400 K/uL Mean Platelet Volume 10.5 7.4-10.4 fL Neutrophils (%) (Auto) 92.0 % Lymphocytes (%) (Auto) 4.7 % Monocytes (%) (Auto) 2.6 % Eosinophils (%) (Auto) 0.2 % Basophils (%) (Auto) 0.2 % Neutrophils # (Auto) 23.61 1.4-6.5 K/uL Lymphocytes # (Auto) 1.21 1.2-3.4 K/uL Monocytes # (Auto) 0.68 0.11-0.59 K/uL Eosinophils # (Auto) 0.06 0-0.5 K/uL Basophils # (Auto) 0.05 0-0.2 K/uL RDW Standard Deviation 45.8 36.4-46.3 fL RDW Coefficient of Variation 14.1 11.5-14.5 % Immature Granulocyte % (Auto) 0.3 % Immature Granulocyte # (Auto) 0.08 0.00-0.02 K/uL Echinocytes 1+ Sodium Level 135 136-145 mmol/L Potassium Level 4.5 3.5-5.1 mmol/L Chloride Level 102 98-107 mmol/L Carbon Dioxide Level 20 21-32 mmol/L Anion Gap 13.0 3-11 mmol/L Blood Urea Nitrogen 12 7-18 mg/dl Creatinine 0.97 0.60-1.20 mg/dl Est Creatinine Clear Calc Drug Dose 96.7 ml/min Estimated GFR () 97.4 Estimated GFR (Non- 84.1 BUN/Creatinine Ratio 12.0 10-20 Random Glucose 384 70-99 mg/dl Calcium Level 9.4 8.5-10.1 mg/dl Total Bilirubin 0.7 0.2-1 mg/dl Direct Bilirubin 0.2 0-0.2 mg/dl Aspartate Amino Transf (AST/SGOT) 20 15-37 U/L Alanine Aminotransferase (ALT/SGPT) 13 12-78 U/L Alkaline Phosphatase 92 45-117 U/L Total Protein 7.7 6.4-8.2 gm/dl Albumin 3.9 3.4-5.0 gm/dl Lipase 34 73-393 U/L Beta-Hydroxybutyric Acid 26.09 0.2-2.81 mg/dL Human Chorionic Gonadotropin, Qual NEG NEG Bedside Troponin I < 0.030 0-0.045 ng/ml Venous Blood pH 7.46 7.36-7.41 Venous Blood Partial Pressure CO2 32 38.0-50.0 mmHg Venous Blood Partial Pressure O2 35 mmHg Venous Blood HCO3 22 mmol/L Venous Blood Oxygen Saturation 68.9 % Venous Blood Base Excess -0.8 mEq/L Microbiology Results 11/01/17 Blood Culture, Ordered Pending 11/01/17 Blood Culture, Ordered Pending Diagnostic Radiology CT chest with IV contrast IMPRESSION: 1. No evidence of pulmonary embolus. No acute intrathoracic pathology. 2. Hepatic steatosis. CXR normal Normal EKG Impression - H&P Impression Assessment and Plan TYPE 1 DIABETES ON INSULIN PUMP/DKA Presents with blood sugar 385/elevated anion gap history of type 1 diabetes/on insulin pump Patient reports of using her pump as instructed Insulin pump is discontinued Started with IV insulin infusion Given IV fluids 2 L bolus, followed by normal saline at 1 25 mL/h to correct dehydration/ intravascular volume depletion Ordered for hemoglobin A1c Pharmacy consulted for diabetic management Patient does not have appear to have full insight regarding insulin pump management/dietary restriction and lifestyle should start modification special education paraeducator consulted MARKED LEUKOCYTOSIS WBC elevated more than 25K Possible combination of stress induced leukocytosis and/with dehydration No reports of fever chills no urinary symptoms Order for blood and urine culture Follow daily CBC CHEST PAIN: Sharp chest pain developed this morning associated with tenderness on chest wall Pain is worse with taking deep breath CT chest with contrast shows no evidence of PE Possible musculoskeletal No hypoxia/tachycardia/or hemodynamic instability Serial cardiac marker will be checked Monitoring telemetry Echo in a.m. HYPONATREMIA Due to dehydration Continue aggressive IV fluid resuscitation Follow PRP POOR APPETITE/SENSATION OF EARLY SATIETY: Patient reports of constant bloating/poor appetite/skips meal very frequently as "does not feel hungry Concern for possible diabetic gastroparesis Patient is counseled to keep blood sugar level within the range/management of type 1 diabetes Change in lifestyle to incorporate exercise/healthy eating Will benefit with gastric emptying study CODE STATUS: Full code DVT prophylaxis Low risk Ordered for SCD and teds Ambulate DISPOSITION Expected to be discharged home when medically stable Level of Care Telemetry Resuscitation Status FULL RESUSCITATION VTE Prophylaxis Risk Level: Low Given or contraindicated: Warfarin (Coumadin) Physical Exam (per Admitting): General Appearance: no apparent distress Head: normocephalic, atraumatic Eyes: normal inspection, PERRL, EOMI, sclerae normal Neck: thyroid normal, no carotid bruits, trachea midline Respiratory/Chest: lungs clear, normal breath sounds, no respiratory distress Cardiovascular: regular rate, rhythm, no edema Abdomen/GI: normal bowel sounds, non tender, soft Back: no CVA tenderness Extremities/Musculoskelatal: normal inspection, normal capillary refill, no pedal edema Neurologic/Psych: alert, oriented x 3 Skin: normal color, warm/dry, no rash Hospital Course DKA TYPE 1 DIABETES ON INSULIN PUMP/DKA Presents with blood sugar 385/elevated anion gap and high B-hydroxybutyrate Has Type 1 diabetes/on insulin pump Patient reports of using her pump as instructed Insulin pump is discontinued Started with IV insulin infusion and IV fluid Pharmacy consulted for diabetic management-appreciate input Patient does not have appear to have full insight regarding insulin pump management/dietary restriction and lifestyle should start modification special education paraeducator consulted Check HbA1c Clincally better and wants to leave the hospital Discussed with the Pharmacy-if tolerating diet ,can be discharged MARKED LEUKOCYTOSIS WBC elevated more than 25K Possible combination of stress induced leukocytosis and/with dehydration No reports of fever chills no urinary symptoms Order for blood and urine culture Follow daily CBC-back to normal Doubt any infection CHEST PAIN: Sharp chest pain developed this morning associated with tenderness on chest wall Pain is worse with taking deep breath CT chest with contrast shows no evidence of PE Possible musculoskeletal ECHO:: * The study was technically limited. There are poor apical windows * The left ventricle is normal in size. * There is borderline concentric left ventricular hypertrophy. * Left ventricular systolic function is normal. * The left ventricular wall motion is normal. * Ejection Fraction = 65-70%. * There is no significant valvular disease * There is no pericardial effusion. No more chest pain HYPONATREMIA/Hypophosphatemia Due to dehydration and Hyperglycemia Continue aggressive IV fluid resuscitation Follow PRP-corrected Replace Phosphate POOR APPETITE/SENSATION OF EARLY SATIETY: Patient reports of constant bloating/poor appetite/skips meal very frequently as "does not feel hungry Concern for possible diabetic gastroparesis Patient is counseled to keep blood sugar level within the range/management of type 1 diabetes Change in lifestyle to incorporate exercise/healthy eating Will benefit with gastric emptying study Advance diet as tolerated Likely discharge this evening CODE STATUS: Full code DVT prophylaxis Low risk Ordered for SCD and teds Ambulate DISPOSITION Expected to be discharged home this Evening Total time spent on discharge = 35 minutes This includes examination of the patient, discharge planning, medication reconciliation, and communication with other providers. Discharge Instructions Date of Service November 02, 2017. Admission Reason for Admission: Dka, Dka Type 1 , Leukocytosis Discharge Discharge Diagnosis / Problem: Hyperglycemia,Possible DKA-resolved Discharge Goals Goal(s): Prevent Disease Progression Activity Recommendations Activity Limitations: resume your previous activity . Instructions / Follow-Up Instructions / Follow-Up Dr Mckenzie on 11/06/17 at 10:15 AM.Please make an early appointment with your Die Barber for better control of your Diabetes. Current Hospital Diet Patient's current hospital diet: Diabetes Type 1 Diet Discharge Diet Recommended Diet: Diabetes Type 1 Diet Pending Studies Studies pending at discharge: no Laboratory Results Hemoglobin A1c Test 11/01/17 13:55 Range/Units Medical Emergencies . Who to Call and When: Medical Emergencies: If at any time you feel your situation is an emergency, please call 911 immediately. . Non-Emergent Contact Non-Emergency issues call your: Primary Care Provider . Past History Medical & Surgical History: (1) DKA (diabetic ketoacidosis) (2) Asthma, Unspecified (3) Anxiety (4) Depression (5) Chest pain . "Provider Documentation" section prepared by Roberto Rodriguez. . <Electronically signed by Roberto Rodriguez M.D.> Signed: 11/02/17 [id number] Additional Copies To Carol Mckenzie D.O.
[2017-11-02 19:07] VITALS: BP 125/72; PULSE 82; TEMP 37; O2SAT 98
[2017-11-03] MEDS ORDERED: NovoLOG INSULIN PUMP SCH (02:00)
[2017-11-03 07:47] LABS: HEMOGLOBIN A1C 7.8 % (4.5-5.6)
== END 2017-11-02 20:45 | disposition home or self-care (01) | DRG 638 ==
LOC: C.EDB 13:38 → C.2T 15:36 → ENRESERV 16:17
PROVIDERS: ADMIT Hospitalist; ATTEND Internal Medicine
DX: E10.10 Type 1 diabetes mellitus with ketoacidosis without coma (principal); E87.1 Hypo-osmolality and hyponatremia; E86.0 Dehydration; E83.39 Other disorders of phosphorus metabolism; R68.81 Early satiety; R07.89 Other chest pain; D72.829 Elevated white blood cell count, unspecified; K21.9 Gastro-esophageal reflux disease without esophagitis; F17.200 Nicotine dependence, unspecified, uncomplicated; Z79.4 Long term (current) use of insulin; Z79.84 Long term (current) use of oral hypoglycemic drugs; Z88.0 Allergy status to penicillin; Z88.1 Allergy status to other antibiotic agents; Z88.8 Allergy status to other drugs, medicaments and biological substances; Z96.41 Presence of insulin pump (external) (internal)